=== PATIENT | male | born 1950 | race Caucasian/White ===

== ENCOUNTER 2019-05-06 18:34 | Inpatient (IN) ==
--- OUTSIDE RECORDS SUMMARY | 2019-05-06 21:20 | External Medical Summary | Continuity of Care Document ---
:1950 Author Name Charanjit Bal Address Unavailable Unavailable , Care Team Providers Name Role Phone Isidro DO Unavailable [email or web address], L Unavailable Unavailable Unavailable Unavailable Unavailable Assessments Assessment Narrative:Mr. Dulce Pablo is a 66-year-old male with resistant hypertension. He has preserved renal function with a serum creatinine documented at less than 1 mg/dL. He did not have evidence of proteinuria on screening. EKG does not show evidence of LVH. He is largely asymptomatic in terms of his elevated blood pressure readings. There is no personal history of cardiovascular disease. There is no family history of hypertension, cardiovascular disease or kidney disease. We establish blood pressuregoal of 130/80 mmHg. Patient's blood pressure appears to be controlled on his current regimen. He does endorse several side effects of clonidine but feels that overall he is tolerating the medication well. He developed urinary retention. This was presumably related to his prostate. He has started f inasteride and Flomax. He is scheduled for follow up with urology. Almonte catheter removed and urinary symptoms improved. Recent elevated PSA noted. The patient completed 3 weeks of antibiotic and plansto repeat the level. He did not tolerate carvedilol for the 24-48 hours he took the medication. Medical history is also notable for diabetes mellitus type 2 controlled with diet, hepatic steatosis, and asthma. He is maintained on aspirin 81 milligrams daily as well as a statin. Lipid profile is excellent. A1c is also appropriate at 6.7. He has been tolerating 40 milligrams daily of lisinopril. He tolerates atenolol 100 milligrams daily with some chronic bradycardia. He is tolerating HCTZ 25 mg daily. 24 hour urine collection for metanephrines was normal. Renin and aldosterone levels were also normal. TSH was normal. I will repeat a metabolic profile in 3 months and have the patient follow up at that time. He will continue to document home BP readings. He was educated regarding symptoms that warrant a more emergent evaluation.Assessed Problems:Hypertension Problems Hypertension (401.9) (I10) VERMA (nonalcoholic steatohepatitis) (571.8) (K75.81) Type 2 diabetes mellitus without complication (250.00) (E11. 9) Seasonal allergic rhinitis (477.9) (J30.2) Asthma (493.90) (J45.909) Mixed hyperlipidemia (272.2) (E78.2) Allergies and Adverse Reactions No Known Drug Allergies (Allergy) Medications hydroCHLOROthiazide 25 MG Oral Tablet; TAKE 1 TABLET DAILY. DO Cordell Felix Start: 30-Aug-2016 Quantity: 90 Refills: 3 Flomax 0.4 MG Oral Capsule; TAKE 1 CAPSULE Daily Refills: 0 ProAir HFA 108 (90 Base) MCG/ACT Inhalat ion Aerosol Solution; INHALE 2 PUFFS EVERY 4 HOURS NEEDED 8.5 GM Inhaler Quantity: 1 Refills: 5 cloNIDine HCl - 0.2 MG Oral Tablet; TAKE 1/2 TABLET TWICE DA CLAIRE. Refills: 0 Atorvastatin Calcium 20 MG Oral Tablet; TAKE 1 TABLET AT BED TIME. Quantity: 30 Refills: 5 Atenolol 100 MG Oral Tablet; TAKE 1 TABLET DAILY. Quantity: 30 Refills: 5 Aspirin 81 MG TABS; TAKE 1 TABLET DAILY. Refills: 0 Finasteride 5 MG Oral Tablet; TAKE 1 TABLET DAILY. Refills: 0 Advair Diskus AEPB; INHALE 1 PUFF DAILY. 14 Inhaler Pack Refills: 0 Lisinopril 40 MG Oral Tablet; TAKE 1 TABLET DAILY. DO Juvenal Felix Quantity: 90 Refills: 1 Procedures Procedures not documented Immunizations Immunizations not documented Social History - Smoking Status Never smoker Interventions InstructionsDo Not Take Anti-Inflammatory Medicines; Done: 17 Mar 2017Restrict your sodium (salt) intake to 2 grams per day.; Done: 17 Mar 2017 Follow-ups/ReferralsFollow-up visit in 3 months; Done: 17 Mar 2017 Plan of Treatment Planned Observations Planned Goals not documented Results No Known Results Results not documented Encounters Appointment; Cordell Felix DO 17-Mar-2017 10:45 Encounter Diagnosis: Problem not documented
[2019-05-06 21:55] LABS: Basophils # (auto) 0.02 K/uL (0-0.2); Basophils % (auto) 0.1 %; Hematocrit (blood only) 45.5 % (42-52); Hemoglobin 15.2 g/dL (14.0-18.0); Immature Granulocytes # (auto) 0.06 K/uL (0.00-0.02); Immature Granulocytes % (auto) 0.3 %; Lymphocytes # (auto) 0.75 K/uL (1.2-3.4); Lymphocytes % (auto) 4.2 %; Mean Corpuscular Hemoglobin 30.5 pg (25-34); Mean Corpuscular Volume 91.2 fL (80-100); Mean Platelet Volume 9.4 fL (7.4-10.4); Monocytes # (auto) 1.02 K/uL (0.11-0.59); Monocytes % (auto) 5.7 %; Neutrophils # (auto) 15.99 K/uL (1.4-6.5); Neutrophils % (auto) 89.7 %; Platelet Count 335 K/uL (130-400); RDW Coefficient of Variation 13.3 % (11.5-14.5); RDW Standard Deviation 44.2 fL (36.4-46.3); Red Blood Count 4.99 M/uL (4.7-6.1); White Blood Count 17.84 K/uL (4.8-10.8)
[2019-05-06 22:06] LABS: Partial Thromboplastin Time 25.8 Seconds (21.0-31.0); Prothrombin Time 10.6 Seconds (9.0-12.0)
[2019-05-06 22:14] LABS: Alanine Aminotransferase 86 U/L (12-78); Albumin Level 3.8 gm/dl (3.4-5.0); Aspartate Aminotransferase 129 U/L (15-37); BUN Creatinine Ratio 38.9 (10-20); Blood Urea Nitrogen 42 mg/dl (7-18); C Reactive Protein 6.18 mg/dl (0-0.29); Calcium 9.6 mg/dl (8.5-10.1); Carbon Dioxide 30 mmol/L (21-32); Chloride 101 mmol/L (98-107); Creatinine Clr Calc Pharmacy 70.7 ml/min; Est GFR (African American) 79.6; Est GFR (Non-African American) 68.7; Glucose 270 mg/dl (70-99); Potassium 3.7 mmol/L (3.5-5.1); Sodium 136 mmol/L (136-145)
[2019-05-06 22:17] LABS: Albumin Globulin Ratio 0.9 (0.9-2); Alkaline Phosphatase 88 U/L (45-117); Bilirubin,Total 0.5 mg/dl (0.2-1); Globulin 4.1 gm/dl (2.5-4.0); Total Protein 7.9 gm/dl (6.4-8.2)
--- NOTE | 2019-05-06 22:18 | History & Physical Report ---
Date of Service May 06, 2019 Assessment & Plan (1) Acute respiratory failure with hypoxia: Patrice Pablo is a 69-year-old male with a past medical history of asthma, hypertension, and type 2 diabetes mellitus who presented to [facility] with several days of dyspnea, fever, chills, and cough and who was found to have multiple infiltrates tree-in-bud at the bases on CT. He was not improving on Rocephin/azithromycin treatment and it was felt that he would benefit from a pulmonology consult so he was transferred to [facility] for further care. Acute hypoxic respiratory failure 2/2 CAP with a history of asthma Patient with a prior history of asthma. He does not know if he has had PFTs. He uses his Advair intermittently, but uses albuterol up to 10 times per day even prior to his current illness. CT chest at [facility] showed tree-in-bud opacities and multifocal pneumonia in the bases bilaterally. He was treated with empiric azithromycin expanded to Rocephin/azithromycin shortly before transfer Reports of fever prior to transfer. His white cell count is mildly elevated in the setting of steroids as below Methylprednisolone 40 mg daily at [facility], continue Pro-Javi negative, CRP elevated. MRSA pending Given negative pro-Javi, afebrile status on admission, and CT not suggestive of consolidative pneumonia with no risk factors for Pseudomonas defer upgrade to cefepime, as a throat this time, continue Rocephin/azithromycin and follow clinically. ?Improving CAP vs viral CAP Blood cultures drawn on admission, pending Legionella antigen pending - Pt reportedly with elevated pBNP SALES AND MARKETING DIRECTOR, repeat on admit wnl. - Flutter valve QID Asthma DuoNebs 4 times daily Steroid treatment as above - Pt will require education and optomization of his SALES AND MARKETING DIRECTOR inhalers. requiring albuterol 10x per day with nightly symptoms indicates mod-sev persistent asthma. Pulmonary consult as above Atrial flutter New atrial flutter with a rate of 113 prior to admission in setting of acute illness, patient had also been taking his own albuterol inhaler multiple times between DuoNeb treatments at [facility] Continue atenolol 100 mg p.o. at bedtime AST/ALT elevated. Trop negative. Normal sinus rhythm in the 80s, regular on admission TTE pending Defer full dose anticoagulation at this time Hypovolemia He appears clinically dry on exam, mucous membranes are tacky Creatinine normal, BUN/creatinine ratio 38.9 Initial concern for CHF/fluid overload with elevated BNP at [facility], BNP normal, chest x-ray shows no pleural effusion or edema, troponin normal Encourage p.o. intake, IVFM half-normal with 20KCl at 100 cc/h Type 2 diabetes mellitus On metformin monotherapy, hold SALES AND MARKETING DIRECTOR meds Glucose checks AC/at bedtime BMP daily Sliding scale insulin Hypertension Continue SALES AND MARKETING DIRECTOR lisinopril 40 mg p.o. nightly Continue SALES AND MARKETING DIRECTOR atenolol 100 mg p.o. nightly Continue amlodipine 2.5 mg p.o. at bedtime Continue clonidine 0.2 mg p.o. twice daily Diet: Diabetic, heart healthy VT prophylaxis: Lovenox 40 mg at this time Disposition: Med telemetry (2) Asthma: (3) CAP (community acquired pneumonia): (4) T2DM (type 2 diabetes mellitus): History of Present Illness Chief Complaint: Shortness of Breath, [facility] Primary Care Provider: Kit Graham Quinn Pablo is a 69-year-old male with a past medical history of asthma, h ypertension, and type 2 diabetes who presents as a direct transfer from [facility] for community-acquired pneumonia with acute hypoxic respiratory failure in an asthmatic. He was transferred for further care and pulmonology consult after failure to improve over 2 days. His symptoms began approximately 5 days ago with a head cold. He developed increasing shortness of breath and a nonproductive cough. He denies fever, chills, night sweats, nausea, vomiting, diarrhea, abdominal pain. He has had intermittent wheezing. He endorses a history of asthma which seems to be worse since his cold. He takes Advair intermittently. He uses an albuterol inhaler daily, up to 10 times per day even preceding his admission. Unsure if he has had PFTs in the past. On admission to [facility] he was given nebulizer treatments, but was not aware he was not supposed to use his own inhaler and was using his own inhaler multiple times between nebulizer treatments. He had a run of atrial flutter with a rate to 113. He does not have any prior history of atrial fibrillation, atrial flutter, or cardiac disease. He was noted to have an elevated BNP and [facility]. Per daughter he had a fever at [facility]. Report had a CT chest at [facility] which showed multifocal non-consolidative pneumonia in the lung bases. No MRSA swab or pro-Javi obtained. Patient was on high flow nasal cannula, on arrival is maintaining O2 saturation of 90% on 6 L. Medical history: Reviewed, updated Surgical history: Noncontributory Medications: Reviewed, updated in EMR Allergies: No known drug allergies Social: Denies current or former tobacco use. Denies alcohol use. Denies recreational drug use. Lives at home independently with his . CODE STATUS: Full code Allergies Allergy/AdvReac Type Severity Reaction Status Date / Time No Known Allergies Allergy Unverified 05/06/19 22:29 Home Medications Home Medications Medication Instructions Recorded Confirmed Type albuterol sulfate [Ventolin HFA] INHALATION 05/06/19 History amlodipine 2.5 mg PO HS 05/06/19 05/06/19 History atenolol [Tenormin] 100 mg PO HS 05/06/19 05/06/19 History atorvastatin 20 mg PO HS 05/06/19 History clonidine HCl 0.2 mg PO BID 05/06/19 05/06/19 History finasteride [Proscar] 5 mg PO DAILY 05/06/19 05/06/19 History hydrochlorothiazide 25 mg PO DAILY 05/06/19 05/06/19 History lisinopril 40 mg PO HS 05/06/19 History metformin [Glucophage] 500 mg PO HS 05/06/19 05/06/19 History tamsulosin [Flomax] 0.4 mg PO DAILY 05/06/19 05/06/19 History Past Med/Surg History Medical History (Updated 05/06/19 @ 22:53 by Palomo Graff MD) Asthma T2DM (type 2 diabetes mellitus) Family History (Updated 05/06/19 @ 23:55 by Palomo Graff MD) Father Heart disease Myocardial infarction Mother Cancer, Onset Age: 80 pancreatic Sister Diabetes Social History Preferred Language: Libyan Communication Ability: Effective Associate Director Data & Analytics Required: No Beliefs That Will Affect Care: Quaker Current Living Situation: Spouse Other Information That Helps Us Care for You: No Feels Safe at Home: Yes Safety Concerns: Feels Safe At This Time Smoking Status: Never smoker Do You Dip or Chew Tobacco: No ; Second Hand Exposure: No ; Tobacco Cessation Education Requested by Patient: No Hx Alcohol Use: Yes Alcohol type: wine Hx Substance Use: No Review of Systems Review of Systems: All systems reviewed & are unremarkable except as noted in HPI & below Physical Exam Physical Exam: General: A&Ox3. NAD. Appears fatigued, ill but nontoxic. Skin warm. Mucous membranes tacky. HEENT: Atraumatic, normocephalic. Pulm: Lungs with diffuse expiratory wheezes, trace bibasilar crackles. Moderate air movement. Symmetrical chest rise. Trachea midline. Cardiac: RRR, -mrg. Radial pulses intact and symmetrical. No JVD. Abdominal: Nontender, nondistended, soft. BS present. CN II: Visual ba are full to confrontation. Pupils are equal and react to light and accomidation. Visual acuity grossly intact. CN III, IV, : At primary gaze, there is no eye deviation. EoM intact without nystagmus. No visual field cuts. CN VII: No facial asymmetry CN VII: Hearing is grossly intact. CN IX, X: Phonation is normal without dysarthria. CN XI: Head turning intact CN XII: Tongue protrudes midline. Sensory: Light touch, pinprick intact in upper and low extremities without deficit or asymmetry. Strength: RUE: Shoulder flexion/extension/internal rotation/external rotation, elbow flexion/extension, finger flexion/extension, medical certification specialist strength, interosseous 5/5 LUE: Shoulder flexion/extension/internal rotation/external rotation, elbow flexion/extension, finger flexion/extension, medical certification specialist strength, interosseous 5/5 RLE: Hip flexion, knee flexion/extension, ankle plantar flexion/dorsiflexion 5/5 LLE: Hip flexion, knee flexion/extension, ankle plantar flexion/dorsiflexion 5/5 Results & Data Vital Signs (Past 12 Hours) Vital Signs Temp Pulse Resp BP BP Pulse Ox 05/06/19 21:00 36.7 C 84 26 H 197/84 H 200/80 H 90 Supervising Physician Co-Signing Physician Notes Attending addendum: I have physically seen this patient, have supervised the medical residents activities, and agree with the H&P unless as otherwise noted. Assessment and Plan: Acute respiratory failure with hypoxia/community-acquired pneumonia/asthma- CT of chest at [facility] showed multifocal pneumonia. Patient reportedly did develop a temperature prior to transfer, in spite of change of antibiotics from azithromycin to ceftriaxone and azithromycin IV, along with Solu-Medrol IV. Consult pulmonology per transfer facility request. Placed on Duonebs every 4 hours while awake and every 2 hours when necessary. Will not change antibiotics at this time, as chest x-ray looks reasonably good, and patient will be seen by pulmonology in the a.m. Hypertension/resolved episode atrial flutter- Presently in sinus rhythm upon admission here. Flutter related to medicamentosa, as patient was self-medicating with his own albuterol inhaler in addition to prescribed nebulizer treatments at referring hospital. Presently on lisinopril 40 mg daily, atenolol 100 mg nightly, amlodipine 2.5 mg nightly and clonidine 0.2 mg p.o. twice daily. For now would continue his medications, however, if he continues to have issues with breathing, then may need to switch away from some of beta-dannielle Follow-up on results of CBC with differential, chemistry profile, troponin and magnesium level. Remainder of orders and notations as noted. Resident Activity Tracking Resident Involvement: Resident Care Provided Care Provided: Adult Hospital Medicine
[2019-05-06] MEDS ORDERED: AMLODIPINE BESYLATE 5 MG TAB PO ONE (22:27)
[2019-05-06] MEDS ORDERED: ATENOLOL 50 MG TABLET PO ONE (22:27)
[2019-05-06] MEDS ORDERED: lisinopriL 40 MG TAB PO ONE (22:28)
[2019-05-06] MEDS ORDERED: ONDANSETRON INJ 2 MG/ML 2 ML VIAL IV PRN (22:28)
[2019-05-06] MEDS ORDERED: ACETAMINOPHEN 325 MG TAB PO PRN (22:28)
[2019-05-06] MEDS ORDERED: POLYETHYLENE (MIRALAX) 17 GM PACK PO PRN (22:28)
[2019-05-06] MEDS ORDERED: GLUCAGON FOR INJ 1 MG VIAL SQ PRN (22:29)
[2019-05-06] MEDS ORDERED: GLUCOSE 10 TABS/TUBE PO PRN (22:29)
[2019-05-06] MEDS ORDERED: DEXTROSE 50% 50 ML SYRINGE IV PRN (22:29)
[2019-05-06] MEDS ORDERED: CARBOHYDRATES FOR HYPOGLYCEMIA PO PRN (22:29)
[2019-05-06] MEDS ORDERED: GLUCOSE 40% GEL 15 GM TUBE PO PRN (22:29)
[2019-05-06] MEDS ORDERED: CEFEPIME 2,000 MG in SYRINGE 7.5 ML IV SCH (22:30)
[2019-05-06 22:43] LABS: Mean Corpuscular Hgb Conc 33.4 g/dL (32-36)
[2019-05-06] MEDS ORDERED: guaiFENesin SUGAR FREE 200 MG/10 ML UDC PO PRN (22:47)
[2019-05-06] MEDS ORDERED: PHARMACY GLYCEMIC MGMT CONSULT PRN (23:00)
[2019-05-06 23:04] LABS: Influenza A virus by PCR Neg for Influ A (Neg); Influenza B virus by PCR Neg for Influ B (Neg)
[2019-05-06] MEDS: cloNIDine HCL 0.1 MG TAB PO SCH (23:10)
[2019-05-06] MEDS: ATENOLOL 50 MG TABLET PO SCH (23:10)
[2019-05-06 23:20] LABS: NT Pro B Type Natriuretic Pept 569 pg/ml (0-900); Troponin I < 0.015 ng/ml (0-0.045)
[2019-05-06] MEDS: INSULIN ASPART 100 UNITS/ML 3 ML PEN SC SCH (23:36)
[2019-05-07] MEDS: SODIUM CHLOR 0.45% + 20MEQ KCL 20 MEQ/1,000 ML BAG IV SCH ×2 (00:12→10:38)
[2019-05-07] MEDS ORDERED: INSULIN ASPART 100 UNITS/ML 3 ML PEN SC SCH (02:00)
[2019-05-07] MEDS: ALBUT/IPRATROP 3MG/0.5MG NEB 3 ML VIAL NEB SCH ×5 (02:26→19:16)
--- NOTE | 2019-05-07 03:44 | Billing Data ---
Date of Service May 07, 2019 Coding Level of Care Code 09429 Initial Inpt Care Lvl 3
[2019-05-07] MEDS ORDERED: COUGH DROP (SUGAR FREE) LOZ 24 LOZ/1 BOX BUCCAL ONE (03:50)
[2019-05-07] MEDS: ENOXAPARIN INJ 40 MG/0.4 ML SYR SQ SCH (06:32)
--- NOTE | 2019-05-07 06:34 | XRay Report ---
XR chest 1V portable CLINICAL HISTORY: shortness of breath COMPARISON STUDY: No previous studies for comparison. FINDINGS: The heart is borderline enlarged. There is no failure. There is no focal pulmonary consolid ation. There are no pleural effusions.[ IMPRESSION: No active disease in the chest. ACT 112: Negative or not required by law. Electronically signed by: Ulisses Guillen M.D. 05/07/2019 6:33 AM
[2019-05-07 07:39] LABS: Basophils # (auto) 0.01 K/uL (0-0.2); Basophils % (auto) 0.1 %; Hematocrit (blood only) 45.1 % (42-52); Hemoglobin 14.8 g/dL (14.0-18.0); Immature Granulocytes # (auto) 0.05 K/uL (0.00-0.02); Immature Granulocytes % (auto) 0.3 %; Lymphocytes # (auto) 1.21 K/uL (1.2-3.4); Lymphocytes % (auto) 7.3 %; Mean Corpuscular Hemoglobin 30.4 pg (25-34); Mean Corpuscular Hgb Conc 32.8 g/dL (32-36); Mean Corpuscular Volume 92.6 fL (80-100); Mean Platelet Volume 9.4 fL (7.4-10.4); Monocytes # (auto) 1.78 K/uL (0.11-0.59); Monocytes % (auto) 10.7 %; Neutrophils # (auto) 13.63 K/uL (1.4-6.5); Neutrophils % (auto) 81.6 %; Platelet Count 310 K/uL (130-400); RDW Coefficient of Variation 13.4 % (11.5-14.5); RDW Standard Deviation 45.1 fL (36.4-46.3); Red Blood Count 4.87 M/uL (4.7-6.1); White Blood Count 16.68 K/uL (4.8-10.8)
[2019-05-07 08:08] LABS: Calcium 8.9 mg/dl (8.5-10.1); Creatinine Clr Calc Pharmacy 89.6 ml/min; Est GFR (African American) 101.6; Est GFR (Non-African American) 87.7; Potassium 4.1 mmol/L (3.5-5.1)
[2019-05-07] MEDS: methylPREDNISolone 40 MG in SYRINGE 0 ML IV SCH (08:34)
[2019-05-07] MEDS: FINASTERIDE 5 MG TAB PO SCH (08:35)
[2019-05-07] MEDS: hydroCHLOROthiazide 25 MG TAB PO SCH (08:36)
[2019-05-07] MEDS: TAMSULOSIN HCL 0.4 MG CAP PO SCH (08:36)
[2019-05-07] MEDS: cloNIDine HCL 0.1 MG TAB PO SCH ×2 (08:36→19:21)
[2019-05-07] MEDS: INSULIN ASPART 100 UNITS/ML 3 ML PEN SC SCH ×4 (08:37→20:28)
[2019-05-07] MEDS: cefTRIAXone SODIUM 2,000 MG in DEXTROSE 5% 50 ML IV SCH (08:55)
--- NOTE | 2019-05-07 09:40 | Electrocardiogram Report ---
Test Reason : Blood Pressure : / mmHG Vent. Rate : 087 BPM Atrial Rate : 087 BPM P-R Int : 150 ms QRS Dur : 092 ms QT Int : 406 ms P-R-T Axes : 063 052 045 degrees QTc Int : 488 ms Normal sinus rhythm Nonspecific ST abnormality Prolonged QT Abnormal ECG No previous ECGs available Confirmed by Quinn Lowry ([id number]) on 05/07/2019 9:40:22 AM Referred By: Fransico Madsen Confirmed By:Quinn Lowry
[2019-05-07] MEDS ORDERED: DOCUSATE SODIUM 100 MG CAP PO ONE (09:45)
[2019-05-07] MEDS ORDERED: AZITHROMYCIN 250 MG in DEXTROSE 5% 250 ML IV SCH (10:00)
--- NOTE | 2019-05-07 12:21 | Electrocardiogram Report ---
Test Reason : Blood Pressure : / mmHG Vent. Rate : 068 BPM Atrial Rate : 068 BPM P-R Int : 148 ms QRS Dur : 094 ms QT Int : 430 ms P-R-T Axes : 060 051 062 degrees QTc Int : 457 ms Normal sinus rhythm Normal ECG When compared with ECG of 06-MAY-2019 22:54, No significant change was found Confirmed by Quinn Lowry ([id number]) on 05/07/2019 12:20:52 PM Referred By: Fransico Madsen Confirmed By:Quinn Lowry
--- NOTE | 2019-05-07 12:46 | Pulmonary Consultation ---
Date of Consultation May 07, 2019 Assessment & Plan (1) Acute respiratory failure with hypoxia: -- Acute Hypoxic respiratory failure Likely sec to multilobar pneumonia ESR: 48, CRP: 6.18, influenza nasal swab negative, follow-up blood culture and sputum culture. Mycoplasma IgM and Legionella urine antigen Continue with antibiotics azithromycin and Rocephin Maintain SPO2 between 88 to 92% Chest x-ray done 05/06/2019: Shows haziness in the right lower lobe bilateral costophrenic angles are clean, bilateral cardiophrenic angles are clean. CT chest of the patient has not yet been uploaded to the system. Radiology department contacted to upload the CD as soon as possible. -- Questionable history of asthma On asking patient multiple times if he has history of asthma or family history of asthma patient denies He is on albuterol at home but not taking any other inhalers other than that. Patient is actively wheezing and on steroids right now. We will try to de- escalate steroids as soon as possible Continue with bronchodilators -- Questionable vegetation on TTE Cardiology on board Follow blood culture Further recommendations will be based after looking at the CAT scan of the chest. Please note the above document was generated using voice recognition software. It may contain grammatical, syntax or spelling errors. (2) CAP (community acquired pneumonia): History of Present Illness Attending Physician: Irais Guo MD History of Present Illness 69-year-old male with past medical history of hypertension, type 2 diabetes comes to the hospital as a transfer from [facility] because of hypoxic respiratory failure secondary to pneumonia. Patient had a CT chest done at [facility] whose report states pneumonia. Images have not been uploaded to our system yet I personally not look at this CAT scan of the chest. Patient has been having cough since last which is mostly dry. The cough is been associated with shortness of breath progressively getting worse since . Patient denies any chest pain, no recent upper respiratory infections. No diarrhea, no dysuria, no dizziness, no blurry vision. No headache. Patient denies any subjective fever or chills. Although as per the daughter patient had fever at [facility]. No night sweats. No weight loss. No recent travel history. Patient is unknown if he had any contact with anybody from [place]. Social history: Patient is a non-smoker, no illicit drug use, no alcohol use. Worked as an accounts receivable accountant. Retired now. Patient personally denies any history of asthma. There is no family history of asthma. No personal or family history of any lung cancer. Patient denies any allergies to any medication or even seasonal allergies. Allergies Allergy/AdvReac Type Severity Reaction Status Date / Time No Known Allergies Allergy Unverified 05/06/19 22:29 Home Medications Home Medications Medication Instructions Recorded Confirmed Type albuterol sulfate [Ventolin HFA] INHALATION 05/06/19 History amlodipine 2.5 mg PO HS 05/06/19 05/06/19 History atenolol [Tenormin] 100 mg PO HS 05/06/19 05/06/19 History atorvastatin 20 mg PO HS 05/06/19 History clonidine HCl 0.2 mg PO BID 05/06/19 05/06/19 History finasteride [Proscar] 5 mg PO DAILY 05/06/19 05/06/19 History hydrochlorothiazide 25 mg PO DAILY 05/06/19 05/06/19 History lisinopril 40 mg PO HS 05/06/19 History metformin [Glucophage] 500 mg PO HS 05/06/19 05/06/19 History tamsulosin [Flomax] 0.4 mg PO DAILY 05/06/19 05/06/19 History Patient History Medical History (Updated 05/06/19 @ 22:53 by Palomo Graff MD) Asthma T2DM (type 2 diabetes mellitus) Family History (Updated 05/06/19 @ 23:55 by Palomo Graff MD) Father Heart disease Myocardial infarction Mother Cancer, Onset Age: 80 pancreatic Sister Diabetes Social History Preferred Language: Frisian Communication Ability: Effective Underwater Roboticist Required: No Beliefs That Will Affect Care: Restorationism Current Living Situation: Spouse Other Information That Helps Us Care for You: No Feels Safe at Home: Yes Safety Concerns: Feels Safe At This Time Smoking Status: Never smoker Do You Dip or Chew Tobacco: No ; Second Hand Exposure: No ; Tobacco Cessation Education Requested by Patient: No Hx Alcohol Use: Yes Alcohol type: wine Hx Substance Use: No Review of Systems Review of Systems: All systems reviewed & are unremarkable except as noted in HPI & below Physical Exam Physical Exam: Constitutional: No acute distress HEENT: EOMI, PERRLA, moist mucous membranes Respiratory system: Good air entry bilaterally, positive expiratory wheeze, positive rhonchi, no crackles CVS: S1-S2 positive, no murmurs or gallops Abdomen: Soft, nontender, nondistended, positive bowel sounds x4 Extremities: +2 pulses bilaterally radialis/ dorsalis pedis, no cyanosis, no edema, no clubbing Neuro: Awake alert oriented x3 Psych: Normal mood and affect G/U: No Almonte At the time of examination patient was saturating 90% on 4 L nasal cannula at rest. Skin: no rashes, warm and dry Lymphatic: no cervical or axillary lymphadenopathy Results & Data ([facility]) Vital Signs (Past 12 Hours) Vital Signs Temp Pulse Resp BP BP Pulse Ox 05/07/19 11:31 36.7 C 75 18 128/64 91 05/07/19 11:06 68 18 92 05/07/19 08:35 148/100 H 05/07/19 07:13 103 H 18 92 05/07/19 07:10 37.0 C 97 H 21 171/105 H 92 05/07/19 03:59 36.6 C 71 19 156/72 H 95 05/07/19 02:29 91 H 18 94 05/07/19 07:05 05/07/19 07:05 PG Care Time/CCT Total # of Minutes Spent Total Time Spent with Patient: Total time spent is greater than 50% in coordination of care (as documented) at patient's floor/unit and/or counseling patient: [place] [address] Initial Inpt Care Lvl 3 Patient Type New Diagnoses Acute respiratory failure with hypoxia J96.01 CAP (community acquired pneumonia) J18.9
--- NOTE | 2019-05-07 12:52 | Hospitalist Progress Note ---
Date of Service May 07, 2019 Assessment & Plan (1) Acute respiratory failure with hypoxia: Patrice Pablo is a 69-year-old male with a past medical history of asthma, hypertension, and type 2 diabetes mellitus who presented to [facility] with several days of dyspnea, fever, chills, and cough. Acute hypoxic respiratory failure secondary to asthma exacerbation due to pneumonia: - likely 2/2 CAP with a history of asthma; patient with a prior history of asthma. He uses his Advair intermittently, but uses albuterol up to 10 times per day during current illness; was treated with empiric azithromycin expanded to Rocephin/azithromycin shortly before transfer - continue Rocephin/azithromycin - on transfer from [facility] patient on Methylprednisolone 40 mg daily - Pro-Javi 0.13, ESR 48, CRP 6.8; Nasal MRSA negative - Blood cultures drawn on admission, pending - Legionella antigen pending - Flutter valve QID - Pulmonology consulted: appreciate recs Asthma: - Pt should have Asthma Action Plan further outlined for asthma control in outpatient setting; during this illness patient was using albuterol rescue inhaler up to 10x per day with nightly symptoms - continue DuoNebs 4 times daily - continue methylprednisolone 40mg daily - Pulmonary consult: appreciate recs A flutter vs A fib: - concern for atrial flutter on telemetry with a rate of 113 at [facility] - EKG did not demonstrate any changes to electrical activity, - continue atenolol 100 mg p.o. at bedtime - TTE demonstrated 0.5 cm focal echodensity attached to tip of mitral valve, with 1cm long filamentous structure with independent motion; ? if bacterial vegetation, Blood cx pending - Cardiology consulted: appreciate recs Hypovolemia: - He appears clinically dry on exam, mucous membranes are tacky - Creatinine normal, BUN/creatinine ratio 38.9 Type 2 diabetes mellitus: - On metformin monotherapy, hold home med regimen - expect some continued fluctuation given on steroids - Glucose checks AC/at bedtime Hypertension: - Continue home lisinopril 40 mg p.o. - Continue home atenolol 100 mg p.o. - Continue home amlodipine 2.5 mg p.o. - Continue home clonidine 0.2 mg p.o. twice daily Diet: Diabetic, heart healthy DVT prophylaxis: Lovenox 40 mg at this time Code status: Full Admission and Anticipated Discharge Date Admission Date: May 06, 2019 Supervising Physician Co-Signing Physician Notes Resident Physician Supervision Note: I independently interviewed and examined the patient and verified the [place] history and physical, reviewed labs and image studies, discussed the case with the resident Dr. Green and agree with the findings and care plan. Subjective Patient does not continue to feel overtly winded while sitting in bed. This is new after having been transferred from previous facility. Does still have some shortness of breath when getting up and walking around within the room. Still requiring oxygen support in the form of 3L nasal cannula, however patient at this point time feels significantly better than he had prior to transfer. Review of Systems Constitutional: no fever, no chills and no sweats Eyes: no blind spots, no diplopia and no spots in vision Ear, Nose, Mouth, Throat: no tinnitus, no dizziness, no nasal congestion and no nasal discharge Respiratory: no cough and no wheezing Cardiovascular: no chest pain, no palpitations, no edema and no claudication Gastrointestinal: no abdominal pain, no nausea and no vomiting Physical Exam Constitutional: WD/WN, vitals as above Eyes: PERRL, conjunctivae normal, anicteric sclerae ENMT: external ear and nose normal, oropharynx normal Respiratory: normal respiratory effort and able to speak in complete sentences; not tachypneic Auscultation: + wheezes (whole ba, end expiratory); no diminished lung sounds, no crackles and no rales Cardiovascular: Rate/Rhythm: regular rate and regular rhythm Heart Sounds: no gallop, no murmur and no cardiac rub Vessels: normal peripheral pulses Gastrointestinal (Abdomen): normal bowel sounds, soft, nontender, no hepatosplenomegaly Lymphatic: no cervical or axillary lymphadenopathy Results & Data ([facility]) Vital Signs (Past 12 Hours) Vital Signs Temp Pulse Resp BP BP Pulse Ox 05/07/19 11:31 36.7 C 75 18 128/64 91 05/07/19 11:06 68 18 92 05/07/19 08:35 148/100 H 05/07/19 07:13 103 H 18 92 05/07/19 07:10 37.0 C 97 H 21 171/105 H 92 05/07/19 03:59 36.6 C 71 19 156/72 H 95 05/07/19 02:29 91 H 18 94 Laboratory Results 05/07/19 05/07/19 05/07/19 Range/Units 11:33 07:34 07:05 WBC (4.8-10.8) K/uL RBC (4.7-6.1) M/uL Hgb (14.0-18.0) g/dL Hct (42-52) % MCV (80-100) fL MCH (25-34) pg MCHC (32-36) g/dL RDW Std Deviation (36.4-46.3) fL RDW Coeff of Rosalino (11.5-14.5) % Plt Count (130-400) K/uL MPV (7.4-10.4) fL Immature Gran % (Auto) % Neut % (Auto) % Lymph % (Auto) % [place] % (Auto) % Eos % (Auto) % Baso % (Auto) % Immature Gran # (Auto) (0.00-0.02) K/uL Neut # (Auto) (1.4-6.5) K/uL Lymph # (Auto) (1.2-3.4) K/uL [place] # (Auto) (0.11-0.59) K/uL Eos # (Auto) (0-0.5) K/uL Baso # (Auto) (0-0.2) K/uL ESR (0-14) mm/hr PT (9.0-12.0) Seconds INR (0.9-1.1) APTT (21.0-31.0) Seconds PTT Ratio Sodium 138 (136-145) mmol/L Potassium 4.1 (3.5-5.1) mmol/L Chloride 104 (98-107) mmol/L Carbon Dioxide 30 (21-32) mmol/L Anion Gap 4.0 (3-11) BUN 38 H (7-18) mg/dl Creatinine 0.85 (0.6-1.4) mg/dl Est Cr Clr Drug Dosing 89.6 ml/min Est GFR ( Amer) 101.6 Est GFR (Non-Af Amer) 87.7 BUN/Creatinine Ratio 45.0 H (10-20) Glucose 193 H (70-99) mg/dl POC Glucose 158 H 179 H (70-99) mg/dl Calcium 8.9 (8.5-10.1) mg/dl Total Bilirubin (0.2-1) mg/dl AST (15-37) U/L ALT (12-78) U/L Alkaline Phosphatase (45-117) U/L Troponin I (0-0.045) ng/ml C-Reactive Protein (0-0.29) mg/dl NT-Pro-B Natriuret Pep (0-900) pg/ml Total Protein (6.4-8.2) gm/dl Albumin (3.4-5.0) gm/dl Globulin (2.5-4.0) gm/dl Albumin/Globulin Ratio (0.9-2) Procalcitonin (0-0.5) ng/ml Nasal Screen MRSA (PCR) (Negative) Influenza Type A (PCR) (Neg) Influenza Type B (PCR) (Neg) Urine Legionella Ag 05/07/19 05/07/19 05/07/19 Range/Units 07:05 02:10 00:30 WBC 16.68 H (4.8-10.8) K/uL RBC 4.87 (4.7-6.1) M/uL Hgb 14.8 (14.0-18.0) g/dL Hct 45.1 (42-52) % MCV 92.6 (80-100) fL MCH 30.4 (25-34) pg MCHC 32.8 (32-36) g/dL RDW Std Deviation 45.1 (36.4-46.3) fL RDW Coeff of Rosalino 13.4 (11.5-14.5) % Plt Count 310 (130-400) K/uL MPV 9.4 (7.4-10.4) fL Immature Gran % (Auto) 0.3 % Neut % (Auto) 81.6 % Lymph % (Auto) 7.3 % [place] % (Auto) 10.7 % Eos % (Auto) 0.0 % Baso % (Auto) 0.1 % Immature Gran # (Auto) 0.05 H (0.00-0.02) K/uL Neut # (Auto) 13.63 H (1.4-6.5) K/uL Lymph # (Auto) 1.21 (1.2-3.4) K/uL [place] # (Auto) 1.78 H (0.11-0.59) K/uL Eos # (Auto) 0.00 (0-0.5) K/uL Baso # (Auto) 0.01 (0-0.2) K/uL ESR (0-14) mm/hr PT (9.0-12.0) Seconds INR (0.9-1.1) APTT (21.0-31.0) Seconds PTT Ratio Sodium (136-145) mmol/L Potassium (3.5-5.1) mmol/L Chloride (98-107) mmol/L Carbon Dioxide (21-32) mmol/L Anion Gap (3-11) BUN (7-18) mg/dl Creatinine (0.6-1.4) mg/dl Est Cr Clr Drug Dosing ml/min Est GFR ( Amer) Est GFR (Non-Af Amer) BUN/Creatinine Ratio (10-20) Glucose (70-99) mg/dl POC Glucose 183 H (70-99) mg/dl Calcium (8.5-10.1) mg/dl Total Bilirubin (0.2-1) mg/dl AST (15-37) U/L ALT (12-78) U/L Alkaline Phosphatase (45-117) U/L Troponin I (0-0.045) ng/ml C-Reactive Protein (0-0.29) mg/dl NT-Pro-B Natriuret Pep (0-900) pg/ml Total Protein (6.4-8.2) gm/dl Albumin (3.4-5.0) gm/dl Globulin (2.5-4.0) gm/dl Albumin/Globulin Ratio (0.9-2) Procalcitonin (0-0.5) ng/ml Nasal Screen MRSA (PCR) (Negative) Influenza Type A (PCR) (Neg) Influenza Type B (PCR) (Neg) Urine Legionella Ag Pending 05/06/19 05/06/19 05/06/19 Range/Units 22:22 22:22 21:32 WBC (4.8-10.8) K/uL RBC (4.7-6.1) M/uL Hgb (14.0-18.0) g/dL Hct (42-52) % MCV (80-100) fL MCH (25-34) pg MCHC (32-36) g/dL RDW Std Deviation (36.4-46.3) fL RDW Coeff of Rosalino (11.5-14.5) % Plt Count (130-400) K/uL MPV (7.4-10.4) fL Immature Gran % (Auto) % Neut % (Auto) % Lymph % (Auto) % [place] % (Auto) % Eos % (Auto) % Baso % (Auto) % Immature Gran # (Auto) (0.00-0.02) K/uL Neut # (Auto) (1.4-6.5) K/uL Lymph # (Auto) (1.2-3.4) K/uL [place] # (Auto) (0.11-0.59) K/uL Eos # (Auto) (0-0.5) K/uL Baso # (Auto) (0-0.2) K/uL ESR (0-14) mm/hr PT (9.0-12.0) Seconds INR (0.9-1.1) APTT (21.0-31.0) Seconds PTT Ratio Sodium (136-145) mmol/L Potassium (3.5-5.1) mmol/L Chloride (98-107) mmol/L Carbon Dioxide (21-32) mmol/L Anion Gap (3-11) BUN (7-18) mg/dl Creatinine (0.6-1.4) mg/dl Est Cr Clr Drug Dosing ml/min Est GFR ( Amer) Est GFR (Non-Af Amer) BUN/Creatinine Ratio (10-20) Glucose (70-99) mg/dl POC Glucose (70-99) mg/dl Calcium (8.5-10.1) mg/dl Total Bilirubin (0.2-1) mg/dl AST (15-37) U/L ALT (12-78) U/L Alkaline Phosphatase (45-117) U/L Troponin I (0-0.045) ng/ml C-Reactive Protein (0-0.29) mg/dl NT-Pro-B Natriuret Pep (0-900) pg/ml Total Protein (6.4-8.2) gm/dl Albumin (3.4-5.0) gm/dl Globulin (2.5-4.0) gm/dl Albumin/Globulin Ratio (0.9-2) Procalcitonin 0.13 (0-0.5) ng/ml Nasal Screen MRSA (PCR) Negative (Negative) Influenza Type A (PCR) Neg for Influ A (Neg) Influenza Type B (PCR) Neg for Influ B (Neg) Urine Legionella Ag 05/06/19 05/06/19 05/06/19 Range/Units 21:32 21:32 21:32 WBC (4.8-10.8) K/uL RBC (4.7-6.1) M/uL Hgb (14.0-18.0) g/dL Hct (42-52) % MCV (80-100) fL MCH (25-34) pg MCHC (32-36) g/dL RDW Std Deviation (36.4-46.3) fL RDW Coeff of Rosalino (11.5-14.5) % Plt Count (130-400) K/uL MPV (7.4-10.4) fL Immature Gran % (Auto) % Neut % (Auto) % Lymph % (Auto) % [place] % (Auto) % Eos % (Auto) % Baso % (Auto) % Immature Gran # (Auto) (0.00-0.02) K/uL Neut # (Auto) (1.4-6.5) K/uL Lymph # (Auto) (1.2-3.4) K/uL [place] # (Auto) (0.11-0.59) K/uL Eos # (Auto) (0-0.5) K/uL Baso # (Auto) (0-0.2) K/uL ESR 48 H (0-14) mm/hr PT 10.6 (9.0-12.0) Seconds INR 1.0 (0.9-1.1) APTT 25.8 (21.0-31.0) Seconds PTT Ratio 1.0 Sodium 136 (136-145) mmol/L Potassium 3.7 (3.5-5.1) mmol/L Chloride 101 (98-107) mmol/L Carbon Dioxide 30 (21-32) mmol/L Anion Gap 5.0 (3-11) BUN 42 H (7-18) mg/dl Creatinine 1.08 (0.6-1.4) mg/dl Est Cr Clr Drug Dosing 70.7 ml/min Est GFR ( Amer) 79.6 Est GFR (Non-Af Amer) 68.7 BUN/Creatinine Ratio 38.9 H (10-20) Glucose 270 H (70-99) mg/dl POC Glucose (70-99) mg/dl Calcium 9.6 (8.5-10.1) mg/dl Total Bilirubin 0.5 (0.2-1) mg/dl AST 129 H (15-37) U/L ALT 86 H (12-78) U/L Alkaline Phosphatase 88 (45-117) U/L Troponin I < 0.015 (0-0.045) ng/ml C-Reactive Protein 6.18 H (0-0.29) mg/dl NT-Pro-B Natriuret Pep 569 (0-900) pg/ml Total Protein 7.9 (6.4-8.2) gm/dl Albumin 3.8 (3.4-5.0) gm/dl Globulin 4.1 H (2.5-4.0) gm/dl Albumin/Globulin Ratio 0.9 (0.9-2) Procalcitonin (0-0.5) ng/ml Nasal Screen MRSA (PCR) (Negative) Influenza Type A (PCR) (Neg) Influenza Type B (PCR) (Neg) Urine Legionella Ag 05/06/19 05/06/19 Range/Units 21:32 21:20 WBC 17.84 H (4.8-10.8) K/uL RBC 4.99 (4.7-6.1) M/uL Hgb 15.2 (14.0-18.0) g/dL Hct 45.5 (42-52) % MCV 91.2 (80-100) fL MCH 30.5 (25-34) pg MCHC 33.4 (32-36) g/dL RDW Std Deviation 44.2 (36.4-46.3) fL RDW Coeff of Rosalino 13.3 (11.5-14.5) % Plt Count 335 (130-400) K/uL MPV 9.4 (7.4-10.4) fL Immature Gran % (Auto) 0.3 % Neut % (Auto) 89.7 % Lymph % (Auto) 4.2 % [place] % (Auto) 5.7 % Eos % (Auto) 0.0 % Baso % (Auto) 0.1 % Immature Gran # (Auto) 0.06 H (0.00-0.02) K/uL Neut # (Auto) 15.99 H (1.4-6.5) K/uL Lymph # (Auto) 0.75 L (1.2-3.4) K/uL [place] # (Auto) 1.02 H (0.11-0.59) K/uL Eos # (Auto) 0.00 (0-0.5) K/uL Baso # (Auto) 0.02 (0-0.2) K/uL ESR (0-14) mm/hr PT (9.0-12.0) Seconds INR (0.9-1.1) APTT (21.0-31.0) Seconds PTT Ratio Sodium (136-145) mmol/L Potassium (3.5-5.1) mmol/L Chloride (98-107) mmol/L Carbon Dioxide (21-32) mmol/L Anion Gap (3-11) BUN (7-18) mg/dl Creatinine (0.6-1.4) mg/dl Est Cr Clr Drug Dosing ml/min Est GFR ( Amer) Est GFR (Non-Af Amer) BUN/Creatinine Ratio (10-20) Glucose (70-99) mg/dl POC Glucose 237 H (70-99) mg/dl Calcium (8.5-10.1) mg/dl Total Bilirubin (0.2-1) mg/dl AST (15-37) U/L ALT (12-78) U/L Alkaline Phosphatase (45-117) U/L Troponin I (0-0.045) ng/ml C-Reactive Protein (0-0.29) mg/dl NT-Pro-B Natriuret Pep (0-900) pg/ml Total Protein (6.4-8.2) gm/dl Albumin (3.4-5.0) gm/dl Globulin (2.5-4.0) gm/dl Albumin/Globulin Ratio (0.9-2) Procalcitonin (0-0.5) ng/ml Nasal Screen MRSA (PCR) (Negative) Influenza Type A (PCR) (Neg) Influenza Type B (PCR) (Neg) Urine Legionella Ag Medications Administered Current Inpatient Medications Acetaminophen (Tylenol) 650 mg PO Q4H PRN PRN Reason: pain/fever Stop: 06/05/19 22:27 Albuterol (Duoneb) 3 ml NEB QIDR COUNT INCLUDES THE [facility] Stop: 06/06/19 06:59 Last Admin: 05/07/19 15:00 Dose: 3 ml Documented by: Amlodipine Besylate (Norvasc) 2.5 mg PO HS COUNT INCLUDES THE [facility] Stop: 06/06/19 20:59 Atenolol (Tenormin) 100 mg PO HS COUNT INCLUDES THE [facility] Stop: 06/05/19 22:27 Last Admin: 05/06/19 23:10 Dose: 100 mg Documented by: Clonidine HCl (Catapres) 0.2 mg PO BID COUNT INCLUDES THE [facility] Stop: 06/05/19 22:59 Last Admin: 05/07/19 08:36 Dose: 0.2 mg Documented by: Dextrose (Dextrose 50%) 25 - 50 ml IV UD PRN; Protocol PRN Reason: Hypoglycemia Protocol Stop: 06/05/19 22:28 Enoxaparin Sodium (Lovenox) 40 mg SQ QAM MANOLO Stop: 06/06/19 08:59 Last Admin: 05/07/19 06:32 Dose: 40 mg Documented by: Finasteride (Proscar) 5 mg PO DAILY COUNT INCLUDES THE [facility] Stop: 06/06/19 08:59 Last Admin: 05/07/19 08:35 Dose: 5 mg Documented by: Glucagon (Glucagen) 1 mg SQ UD PRN; Protocol PRN Reason: Hypoglycemia Protocol Stop: 06/05/19 22:28 Glucose (Dex4 Glucose) 4 - 8 tabs PO UD PRN; Protocol PRN Reason: Hypoglycemia Protocol Stop: 06/05/19 22:28 Glucose (Glucose 40%) 15 - 30 gm PO UD PRN; Protocol PRN Reason: Hypoglycemia Protocol Stop: 06/05/19 22:28 Guaifenesin (Robitussin Sugar Free) 200 mg PO Q6H PRN PRN Reason: Cough Stop: 06/05/19 22:46 Last Admin: 05/07/19 00:36 Dose: 200 mg Documented by: Hydrochlorothiazide (Hctz) 25 mg PO DAILY COUNT INCLUDES THE [facility] Stop: 06/06/19 08:59 Last Admin: 05/07/19 08:36 Dose: 25 mg Documented by: Azithromycin 250 mg/ Dextrose 252.5 mls @ 125 mls/hr IV Q24H COUNT INCLUDES THE [facility] Stop: 05/14/19 09:59 Last Infusion: 05/07/19 13:25 Dose: Infused Documented by: Methylprednisolone 40 mg/ (Syringe) 0.64 mls @ 1.5 mls/min IV DAILY MANOLO Stop: 06/06/19 08:59 Last Admin: 05/07/19 08:34 Dose: 1.5 mls/min Documented by: Ceftriaxone Sodium 2,000 mg/ (Dextrose) 70 mls @ 100 mls/hr IV DAILY COUNT INCLUDES THE [facility]; Protocol Stop: 05/14/19 08:59 Last Infusion: 05/07/19 10:37 Dose: Infused Documented by: Insulin Aspart (Novolog Flexpen) 0 units SC ACHS MANOLO Stop: 06/05/19 22:59 Last Admin: 05/07/19 12:20 Dose: 2 units Documented by: Insulin Aspart (Novolog Flexpen) 0 units SC TODAY@0000,0400 MANOLO Stop: 05/08/19 04:01 Lisinopril (Zestril) 40 mg PO HS MANOLO Stop: 06/06/19 20:59 Miscellaneous (Carbohydrates For Hypoglycemia) 15 - 30 gm PO UD PRN PRN Reason: Hypoglycemia Protocol Stop: 06/05/19 22:28 Miscellaneous Information (Consult Glycemic Management Pharmacy) 1 ea N/A UD PRN; Protocol PRN Reason: Consult Stop: 06/05/19 22:59 Polyethylene Glycol (Miralax Powder Packet) 17 gm PO DAILY PRN PRN Reason: Constipation Stop: 06/05/19 22:27 Tamsulosin HCl (Flomax) 0.4 mg PO DAILY MANOLO Stop: 06/06/19 08:59 Last Admin: 05/07/19 08:36 Dose: 0.4 mg Documented by: Resident Activity Tracking Resident Involvement: Resident Care Provided Care Provided: Adult Hospital Medicine
--- NOTE | 2019-05-07 14:38 | Pharmacy Report ---
Pharmacy Glycemic Short Note 2 - Date of Service May 07, 2019 - Glycemic Short BSG Results (Last 24 hours): 05/06/19 05/06/19 05/07/19 21:20 21:32 02:10 Glucose 270 H POC Glucose 237 H 183 H 05/07/19 05/07/19 05/07/19 07:05 07:34 11:33 Glucose 193 H POC Glucose 179 H 158 H OUTPATIENT ANTIDIABETIC REGIMEN: * Metformin 500mg PO HS * A1C: pending 05/08/19 ASSESSMENT: * Patient admitted with acute respiratory failure receiving IV antibiotics and methylprednisolone 40mg daily (continued from CECIL Lorenz) * While hyperglycemic on admission, patient has downtrended nicely with NovoLog coverage. Will continue NovoLog coverage only for now. If BSG begins uptrending overnight, may consider 10-15 units of NPH tomorrow morning with IV steroid. Will add overnight novolog checks/coverage. PLAN FOR INPATIENT GLYCEMIC CONTROL: * Hold outpatient oral diabetes medications * Basal insulin * Hold * Bolus insulin * NovoLog per scale ACHS PLUS 0000,0400 * Goal Range: Low 120 mg/dL - High 160 mg/dL * Correction Factor: 25 mg/dL/unit * Nutritional / Prandial insulin per carb ratio of 1 unit per 10 grams CHO consumed PLAN FOR DISCHARGE: * pending
--- NOTE | 2019-05-07 14:42 | XCELERA ---
[id number] [id number]
[2019-05-07] MEDS: AMLODIPINE BESYLATE 5 MG TAB PO SCH (19:21)
[2019-05-07] MEDS: ATENOLOL 50 MG TABLET PO SCH (19:21)
[2019-05-07] MEDS: lisinopriL 40 MG TAB PO SCH (19:21)
[2019-05-07] MEDS ORDERED: METFORMIN HCL 500 MG TAB PO SCH (21:00)
[2019-05-07] MEDS ORDERED: Nursing to Pharmacy Communication ONE (23:34)
[2019-05-08] MEDS: INSULIN ASPART 100 UNITS/ML 3 ML PEN SC SCH ×5 (00:22→20:24)
[2019-05-08] MEDS: ALBUT/IPRATROP 3MG/0.5MG NEB 3 ML VIAL NEB SCH ×5 (03:31→19:57)
[2019-05-08 06:31] LABS: Basophils # (auto) 0.02 K/uL (0-0.2); Basophils % (auto) 0.2 %; Hematocrit (blood only) 45.5 % (42-52); Immature Granulocytes # (auto) 0.07 K/uL (0.00-0.02); Immature Granulocytes % (auto) 0.6 %; Mean Corpuscular Hemoglobin 30.2 pg (25-34); Mean Corpuscular Volume 91.7 fL (80-100); Mean Platelet Volume 9.2 fL (7.4-10.4); Monocytes # (auto) 1.15 K/uL (0.11-0.59); Monocytes % (auto) 10.1 %; Neutrophils # (auto) 8.42 K/uL (1.4-6.5); Neutrophils % (auto) 74.1 %; Platelet Count 287 K/uL (130-400); RDW Coefficient of Variation 13.1 % (11.5-14.5); Red Blood Count 4.96 M/uL (4.7-6.1); White Blood Count 11.36 K/uL (4.8-10.8)
[2019-05-08 07:05] LABS: BUN Creatinine Ratio 37.6 (10-20); Calcium 8.7 mg/dl (8.5-10.1); Creatinine Clr Calc Pharmacy 99.8 ml/min; Est GFR (African American) 106.4; Est GFR (Non-African American) 91.8; Magnesium 2.7 mg/dl (1.8-2.4); Potassium 3.9 mmol/L (3.5-5.1)
[2019-05-08 07:16] LABS: Thyroid Stimulating Hormone 1.11 uIu/ml (0.300-4.500)
[2019-05-08 07:24] LABS: Estimated Average Glucose 186 mg/dl; Hemoglobin A1C 8.1 % (4.5-5.6)
--- NOTE | 2019-05-08 09:26 | Pulmonology Progress Note ---
Date of Service May 08, 2019 Assessment & Plan (1) Acute respiratory failure with hypoxia: -- Acute Hypoxic respiratory failure Likely sec to multilobar pneumonia, atypical ESR: 48, CRP: 6.18, procalcitonin 0.05, influenza nasal swab negative, nasal MRSA negative, follow-up blood culture and sputum culture. Mycoplasma IgM and Legionella urine antigen Continue with antibiotics azithromycin and Rocephin Maintain SPO2 between 88 to 92% Chest x-ray done 05/06/2019: Shows haziness in the right lower lobe bilateral costophrenic angles are clean, bilateral cardiophrenic angles are clean. CT chest done 05/06/2019 personally reviewed: Bilateral ground-glass opacities along with tree-in-bud appreciated. There is air trapping appreciated too. No significant mediastinal lymphadenopathy. -- Questionable history of asthma Patient is a poor historian. On asking whether he has history of asthma he says maybe he does he is not sure. He does complain of wheezing around spring and fall season. The He is on albuterol at home but not taking any other inhalers other than that. Patient is actively wheezing and on steroids right now. Continue with bronchodilators -- Questionable vegetation on TTE Cardiology on board Follow blood culture Plan: Continue with antibiotics for total of 5-7 days. Continue with nebulized bronchodilators along with steroid. Patient still liters nasal cannula with saturation of 90 % . If there is no improvement oxygenation in the next couple of days patient will likely end up on home O2. Please note the above document was generated using voice recognition software. It may contain grammatical, syntax or spelling errors. (2) CAP (community acquired pneumonia): Subjective Patient seen and examined at bedside. No acute distress, not with events overnight. States that he is feeling a little bit better. Still coughing but unable to bring up any phlegm. Denies any chest pain, no headache, no nausea, no vomiting. No abdominal pain. Good appetite. Review of Systems Review of Systems: All systems reviewed & are unremarkable except as noted in HPI & below Physical Exam Physical Exam: Constitutional: No acute distress HEENT: EOMI, PERRLA, moist mucous membranes Respiratory system: Decreased air entry bilaterally, positive expiratory wheeze, positive rhonchi, no crackles CVS: S1-S2 positive, no murmurs or gallops Abdomen: Soft, nontender, nondistended, positive bowel sounds x4 Extremities: +2 pulses bilaterally radialis/ dorsalis pedis, no cyanosis, no edema, no clubbing Neuro: Awake alert oriented x3 Psych: Normal mood and affect G/U: No [place] At the time of examination patient was saturating 91% on 3 L nasal cannula at rest. Skin: no rashes, warm and dry Lymphatic: no cervical or axillary lymphadenopathy Results & Data ([facility]) Vital Signs (Past 12 Hours) Vital Signs Temp Pulse Resp BP BP Pulse Ox 05/08/19 07:42 36.7 C 72 20 174/83 H 91 05/08/19 07:09 36.9 C 77 20 182/97 H 92 05/08/19 07:00 65 20 92 05/08/19 04:11 91 05/08/19 03:35 64 20 93 05/08/19 03:16 36.7 C 67 22 166/105 H 94 05/08/19 00:04 36.7 C 64 22 168/92 H 94 05/08/19 06:18 05/08/19 06:18 PG Care Time/CCT Total # of Minutes Spent Total Time Spent with Patient: Total time spent is greater than 50% in coordination of care (as documented) at patient's floor/unit and/or counseling patient: Coding Level of Care Code 50867 Subseq Hosp Care Lvl 3 Diagnoses Acute respiratory failure with hypoxia J96.01 CAP (community acquired pneumonia) J18.9
[2019-05-08] MEDS: TAMSULOSIN HCL 0.4 MG CAP PO SCH ×2 (09:32→11:16)
[2019-05-08] MEDS: cloNIDine HCL 0.1 MG TAB PO SCH ×3 (09:32→20:20)
[2019-05-08] MEDS: hydroCHLOROthiazide 25 MG TAB PO SCH ×2 (09:32→11:16)
[2019-05-08] MEDS: FINASTERIDE 5 MG TAB PO SCH ×2 (09:32→11:16)
[2019-05-08] MEDS: ENOXAPARIN INJ 40 MG/0.4 ML SYR SQ SCH (09:34)
[2019-05-08] MEDS: cefTRIAXone SODIUM 2,000 MG in DEXTROSE 5% 50 ML IV SCH (09:35)
[2019-05-08] MEDS: methylPREDNISolone 40 MG in SYRINGE 0 ML IV SCH (09:35)
--- NOTE | 2019-05-08 09:46 | Cardiology Consultation ---
Date of Consultation May 08, 2019 Assessment & Plan (1) Mitral valve filamentous strands: There is clearly an abnormality with a filamentous structure on the mitral valve, this could be vegetation and needs to be excluded. This would require a transesophageal echocardiogram, I discussed that with him and he is agreeable. I had made him n.p.o. and will plan on doing that around noon today. It is conceivable this could be thrombus although it does not typically appear this way, but he does have atrial fibrillation. Hopefully with the transesophageal echocardiogram we can be more sure of a diagnosis. (2) Atrial fibrillation: He has asymptomatic atrial fibrillation. At [facility] he was observed to have it on the monitor, I believe was felt to be due to his acute illness but it was not present on presentation but occurred while he was there several days later. He is also had it now, including this morning. At this point he is not terribly ill and I think we have to take this as a sign that he has longstanding paroxysmal atrial fibrillation. We can consider longer-term monitoring at discharge or just plan on chronic anticoagulation. I would not start anticoagulation until after the transesophageal echocardiogram but we probably should do it at that point. I would recommend Eliquis 5 mg twice a day. (3) Abnormal QT interval present on electrocardiography: On his presenting electrocardiogram he did have a slightly long corrected QT interval. This could be antibiotic related. I would probably not avoid QT prolonging medications at this point, but I would check an electrocardiogram if those types of medications are used to make sure that he does not have significant QT prolongation. (4) HBP (high blood pressure): His blood pressure is significantly elevated and he has a rapid heart rate on telemetry during atrial fibrillation. He does not have a low heart rate at other times. He is on atenolol 100 mg at bedtime, I would probably use either metoprolol succinate or use atenolol twice a day rather than once a day since we can also use this for rate control. Since he is already on atenolol I am going to increase it to 100 mg twice daily starting tomorrow, I am going to give him a 50 mg dose now. History of Present Illness Reason for Consultation: Possible mitral valve vegetation, atrial flutter Attending Physician: Irais Guo MD History of Present Illness This is a 69-year-old male with a history of hypertension, diabetes mellitus who presented with several days of dyspnea, fever, chills and cough to [facility] on May 04, 2019. Their evaluation showed multiple infiltrates in his bases on CT scanning and he was transferred here since they do not have a culturist on staff. He arrived here on May 06, 2019. He also has history of asthma and was treated with steroids and he was started on antibiotics. Here evaluation included an echocardiogram on May 07, 2019 where he had normal left ventricular size and function with mild concentric left ventricular hypertrophy but a filamentous structure was seen on the mitral valve leaflet and therefore vegetation could not be excluded. Of note he also had atrial flutter with a heart rate of 113 on May 05, 2019 at [facility] but I believe quickly converted to sinus rhythm although I cannot be sure of the precise duration from the records I see. He tells me that he had no symptoms during it although he recalls being told that he had it when he was at [facility]. He also reports that he has had no symptoms of palpitations here but has had atrial fibrillation on telemetry. He is currently not anticoagulated. At the time my evaluation he is feeling quite well, his respiratory status has improved. He tells me that he does not typically have exertional symptoms including exertional chest discomfort or exertional shortness of breath. He has never been told he had atrial fibrillation prior to this presentation, has never noticed a fast heart rate or an irregular heart rate even with exertion. He has had no lightheadedness or dizziness. Allergies Allergy/AdvReac Type Severity Reaction Status Date / Time No Known Allergies Allergy Unverified 05/06/19 22:29 Home Medications Home Medications Medication Instructions Recorded Confirmed Type albuterol sulfate [Ventolin HFA] INHALATION 05/06/19 History amlodipine 2.5 mg PO HS 05/06/19 05/06/19 History atenolol [Tenormin] 100 mg PO HS 05/06/19 05/06/19 History atorvastatin 20 mg PO HS 05/06/19 History clonidine HCl 0.2 mg PO BID 05/06/19 05/06/19 History finasteride [Proscar] 5 mg PO DAILY 05/06/19 05/06/19 History hydrochlorothiazide 25 mg PO DAILY 05/06/19 05/06/19 History lisinopril 40 mg PO HS 05/06/19 History metformin [Glucophage] 500 mg PO HS 05/06/19 05/06/19 History tamsulosin [Flomax] 0.4 mg PO DAILY 05/06/19 05/06/19 History Patient History Medical History (Updated 05/08/19 @ 10:46 by Quinn Lowry MD) Asthma T2DM (type 2 diabetes mellitus) Family History (Updated 05/06/19 @ 23:55 by Palomo Graff MD) Father Heart disease Myocardial infarction Mother Cancer, Onset Age: 80 pancreatic Sister Diabetes Social History Preferred Language: [place] Communication Ability: Effective 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 HEENT: Unremarkable Neck: No jugular venous distention, carotid pulses are irregular but otherwise normal and equal bilaterally without bruits. Pulmonary: Clear to auscultation bilaterally. Cardiac: Irregular rapid rhythm with no murmur, gallop or rub. Abdomen: Soft, nontender with normal bowel sounds. Extremities: No edema. Distal pulses intact. Neurologic: No focal findings. Gait is steady. Skin: No rash, ecchymoses or petechiae. Results & Data ([facility]) Vital Signs (Past 12 Hours) Vital Signs Temp Pulse Resp BP BP Pulse Ox 05/08/19 07:42 36.7 C 72 20 174/83 H 91 05/08/19 07:09 36.9 C 77 20 182/97 H 92 05/08/19 07:00 65 20 92 05/08/19 04:11 91 05/08/19 03:35 64 20 93 05/08/19 03:16 36.7 C 67 22 166/105 H 94 05/08/19 00:04 36.7 C 64 22 168/92 H 94 Laboratory Results CBC 05/08/19 Range/Units 06:18 WBC 11.36 H (4.8-10.8) K/uL RBC 4.96 (4.7-6.1) M/uL Hgb 15.0 (14.0-18.0) g/dL Hct 45.5 (42-52) % Plt Count 287 (130-400) K/uL Neut # (Auto) 8.42 H (1.4-6.5) K/uL Lymph # (Auto) 1.70 (1.2-3.4) K/uL [place] # (Auto) 1.15 H (0.11-0.59) K/uL Eos # (Auto) 0.00 (0-0.5) K/uL Baso # (Auto) 0.02 (0-0.2) K/uL Comprehensive Metabolic Panel 05/08/19 Range/Units 06:18 Sodium 137 (136-145) mmol/L Potassium 3.9 (3.5-5.1) mmol/L Chloride 101 (98-107) mmol/L Carbon Dioxide 33 H (21-32) mmol/L BUN 29 H (7-18) mg/dl Creatinine 0.76 (0.6-1.4) mg/dl Glucose 154 H (70-99) mg/dl Calcium 8.7 (8.5-10.1) mg/dl Intake and Output 05/07/19 05/08/19 05/08/19 22:59 06:59 14:59 Intake Total 550 / 2642.5 70 / 70 Output Total 626 / 1427 400 / 1427 Balance -76 / 1215.5 -400 / 1215.5 70 / 70 Intake: IV 70 / 70 Rocephin 2,000 mg In D5w 50 ml 70 / 70 @ 100 mls/hr IV DAILY [facility]O Rx#: [id number] Oral 550 / 900 Output: Urine 625 / 1425 400 / 1425 # Bowel Movements 1 / 2 Other: Other Intake Source NPO # Unmeasured Voids 1 1 Weight 95.3 kg Diagnostic Findings Telemetry: Sinus rhythm with intermittent episodes of atrial fibrillation. Yesterday evening he had about 2 hours of atrial fibrillation with a heart rate around 120 bpm on average. This morning at the time of my evaluation he was in atrial fibrillation which was short-lived. Even during atrial fibrillation when I specifically asked him about symptoms he had no sensation of it. Electrocardiogram: His electrocardiogram here on arrival on May 06, 2019 at 11 PM showed sinus rhythm with a nonspecific ST-T abnormality and a slightly prolonged QT interval. A repeat electrocardiogram done on May 07, 2019 at 10 AM showed sinus rhythm and was normal. PG Care Time/CCT Total # of Minutes Spent Total Time Spent with Patient: Total time spent is greater than 50% in coordination of care (as documented) at patient's floor/unit and/or counseling patient: Coding Level of Care Code 80433 Initial Inpt Care Lvl 3 Diagnoses Mitral valve filamentous strands I34.8 Atrial fibrillation I48.91 Abnormal QT interval present on electrocardiography R94.31 HBP (high blood pressure) I10
[2019-05-08] MEDS: AZITHROMYCIN 500 MG in DEXTROSE 5% 250 ML IV SCH (10:31)
[2019-05-08] MEDS ORDERED: ATENOLOL 50 MG TABLET PO STA (10:54)
[2019-05-08] MEDS ORDERED: INSULIN ASPART 100 UNITS/ML 3 ML PEN SC SCH ×2 (12:00)
--- NOTE | 2019-05-08 12:36 | Hospitalist Progress Note ---
Date of Service May 08, 2019 Assessment & Plan (1) Acute respiratory failure with hypoxia: Patrice Pablo is a 69-year-old male with a past medical history of asthma, hypertension, and type 2 diabetes mellitus who presented to [facility] with several days of dyspnea, fever, chills, and cough. Acute hypoxic respiratory failure: - likely 2/2 CAP - was treated with empiric azithromycin expanded to Rocephin/azithromycin shortly before transfer - continue Rocephin/azithromycin - continue Methylprednisolone 40 mg daily - Pro-Javi 0.05, ESR 48, CRP 6.8; Nasal MRSA negative - Blood cx NG@24hrs - Legionella antigen pending, mycoplasma pending - Flutter valve QID - Pulmonology consulted: appreciate recs A flutter vs A fib: - concern for atrial flutter on telemetry with a rate of 113 at [facility] - EKG did not demonstrate any changes to electrical activity, - tomorrow will start atenolol 100 mg BID - TTE demonstrated 0.5cm focal echodensity attached to tip of mitral valve, with 1cm long filamentous structure with independent motion; ?if bacterial vegetation, Blood cx pending - HESHAM demonstrated 0.38cm calcification nodule involving anterior leaflet of mitral valve; no vegetation; no left atrial thrombus. - Cardiology consulted: likely asymptomatic atrial fibrillation, consider Eliquis 5mg BID or long-term monitoring Hypovolemia: - Creatinine normal, BUN/creatinine ratio 38.9 Type 2 diabetes mellitus: - On metformin monotherapy, hold home med regimen - expect some continued fluctuation given on steroids - Glucose checks AC/at bedtime Hypertension: - Continue home lisinopril 40 mg p.o. - Tomorrow will start atenolol 100 mg BID - Continue home amlodipine 2.5 mg p.o. - Continue home clonidine 0.2 mg p.o. twice daily Diet: Diabetic, heart healthy DVT prophylaxis: Lovenox Code status: Full Admission and Anticipated Discharge Date Admission Date: May 06, 2019 Supervising Physician Co-Signing Physician Notes Resident Physician Supervision Note: I independently interviewed and examined the patient and verified the [place] history and physical, reviewed labs and image studies, discussed the case with the resident Dr. Green and agree with the findings and care plan. Subjective Patient does not continue to feel overtly winded while sitting in bed. Does still have some shortness of breath when getting up and walking around within the room. Over night was temporarily off oxygen support and felt good until he got up and walked around and then subsequently needed a breathing treatment and return to oxygen. Still requiring oxygen support in the form of 3L nasal cannula, however patient at this point time continues to feel significantly better than he had prior to transfer. Review of Systems Constitutional: no fever, no chills and no sweats Eyes: no diplopia, no discharge and no photophobia Ear, Nose, Mouth, Throat: no tinnitus, no nasal congestion, no nasal discharge and no post nasal drip Respiratory: no cough, no pain on inspiration and no sputum production Cardiovascular: no chest pain, no palpitations and no edema Gastrointestinal: no abdominal pain, no nausea, no vomiting and no change in stools Physical Exam Constitutional: WD/WN, vitals as above Eyes: PERRL, conjunctivae normal, anicteric sclerae ENMT: external ear and nose normal, oropharynx normal Respiratory: normal respiratory effort and able to speak in complete sentences; not tachypneic Auscultation: + wheezes (whole ba, end expiratory); no crackles and no rales Cardiovascular: Rate/Rhythm: regular rate and regular rhythm Heart Sounds: no gallop, no murmur and no cardiac rub Vessels: normal peripheral pulses Gastrointestinal (Abdomen): normal bowel sounds, soft, nontender, no hepatosplenomegaly Lymphatic: no cervical or axillary lymphadenopathy Results & Data ([facility]) Vital Signs (Past 12 Hours) Vital Signs Temp Pulse Resp BP BP Pulse Ox 05/08/19 11:12 87 28 H 89 L 05/08/19 10:54 36.6 C 83 28 H 178/102 H 89 L 05/08/19 07:42 36.7 C 72 20 174/83 H 91 05/08/19 07:09 36.9 C 77 20 182/97 H 92 05/08/19 07:00 65 20 92 05/08/19 04:11 91 05/08/19 03:35 64 20 93 05/08/19 03:16 36.7 C 67 22 166/105 H 94 Laboratory Results 05/08/19 05/08/19 05/08/19 Range/Units 15:47 11:24 07:39 WBC (4.8-10.8) K/uL RBC (4.7-6.1) M/uL Hgb (14.0-18.0) g/dL Hct (42-52) % MCV (80-100) fL MCH (25-34) pg MCHC (32-36) g/dL RDW Std Deviation (36.4-46.3) fL RDW Coeff of Rosalino (11.5-14.5) % Plt Count (130-400) K/uL MPV (7.4-10.4) fL Immature Gran % (Auto) % Neut % (Auto) % Lymph % (Auto) % [place] % (Auto) % Eos % (Auto) % Baso % (Auto) % Immature Gran # (Auto) (0.00-0.02) K/uL Neut # (Auto) (1.4-6.5) K/uL Lymph # (Auto) (1.2-3.4) K/uL [place] # (Auto) (0.11-0.59) K/uL Eos # (Auto) (0-0.5) K/uL Baso # (Auto) (0-0.2) K/uL Sodium (136-145) mmol/L Potassium (3.5-5.1) mmol/L Chloride (98-107) mmol/L Carbon Dioxide (21-32) mmol/L Anion Gap (3-11) BUN (7-18) mg/dl Creatinine (0.6-1.4) mg/dl Est Cr Clr Drug Dosing ml/min Est GFR ( Amer) Est GFR (Non-Af Amer) BUN/Creatinine Ratio (10-20) Glucose (70-99) mg/dl POC Glucose 218 H 207 H 154 H (70-99) mg/dl Estimat Average Glucose mg/dl Hemoglobin A1c (4.5-5.6) % Calcium (8.5-10.1) mg/dl Magnesium (1.8-2.4) mg/dl Procalcitonin (0-0.5) ng/ml TSH (0.300-4.500) uIu/ml Urine Legionella Ag 05/08/19 05/08/19 05/08/19 Range/Units 06:18 06:18 06:18 WBC 11.36 H (4.8-10.8) K/uL RBC 4.96 (4.7-6.1) M/uL Hgb 15.0 (14.0-18.0) g/dL Hct 45.5 (42-52) % MCV 91.7 (80-100) fL MCH 30.2 (25-34) pg MCHC 33.0 (32-36) g/dL RDW Std Deviation 44.0 (36.4-46.3) fL RDW Coeff of Rosalino 13.1 (11.5-14.5) % Plt Count 287 (130-400) K/uL MPV 9.2 (7.4-10.4) fL Immature Gran % (Auto) 0.6 % Neut % (Auto) 74.1 % Lymph % (Auto) 15.0 % [place] % (Auto) 10.1 % Eos % (Auto) 0.0 % Baso % (Auto) 0.2 % Immature Gran # (Auto) 0.07 H (0.00-0.02) K/uL Neut # (Auto) 8.42 H (1.4-6.5) K/uL Lymph # (Auto) 1.70 (1.2-3.4) K/uL [place] # (Auto) 1.15 H (0.11-0.59) K/uL Eos # (Auto) 0.00 (0-0.5) K/uL Baso # (Auto) 0.02 (0-0.2) K/uL Sodium 137 (136-145) mmol/L Potassium 3.9 (3.5-5.1) mmol/L Chloride 101 (98-107) mmol/L Carbon Dioxide 33 H (21-32) mmol/L Anion Gap 3.0 (3-11) BUN 29 H (7-18) mg/dl Creatinine 0.76 (0.6-1.4) mg/dl Est Cr Clr Drug Dosing 99.8 ml/min Est GFR ( Amer) 106.4 Est GFR (Non-Af Amer) 91.8 BUN/Creatinine Ratio 37.6 H (10-20) Glucose 154 H (70-99) mg/dl POC Glucose (70-99) mg/dl Estimat Average Glucose 186 mg/dl Hemoglobin A1c 8.1 H (4.5-5.6) % Calcium 8.7 (8.5-10.1) mg/dl Magnesium 2.7 H (1.8-2.4) mg/dl Procalcitonin (0-0.5) ng/ml TSH 1.110 (0.300-4.500) uIu/ml Urine Legionella Ag 05/08/19 05/08/19 05/08/19 Range/Units 06:18 03:19 00:05 WBC (4.8-10.8) K/uL RBC (4.7-6.1) M/uL Hgb (14.0-18.0) g/dL Hct (42-52) % MCV (80-100) fL MCH (25-34) pg MCHC (32-36) g/dL RDW Std Deviation (36.4-46.3) fL RDW Coeff of Rosalino (11.5-14.5) % Plt Count (130-400) K/uL MPV (7.4-10.4) fL Immature Gran % (Auto) % Neut % (Auto) % Lymph % (Auto) % [place] % (Auto) % Eos % (Auto) % Baso % (Auto) % Immature Gran # (Auto) (0.00-0.02) K/uL Neut # (Auto) (1.4-6.5) K/uL Lymph # (Auto) (1.2-3.4) K/uL [place] # (Auto) (0.11-0.59) K/uL Eos # (Auto) (0-0.5) K/uL Baso # (Auto) (0-0.2) K/uL Sodium (136-145) mmol/L Potassium (3.5-5.1) mmol/L Chloride (98-107) mmol/L Carbon Dioxide (21-32) mmol/L Anion Gap (3-11) BUN (7-18) mg/dl Creatinine (0.6-1.4) mg/dl Est Cr Clr Drug Dosing ml/min Est GFR ( Amer) Est GFR (Non-Af Amer) BUN/Creatinine Ratio (10-20) Glucose (70-99) mg/dl POC Glucose 136 H 146 H (70-99) mg/dl Estimat Average Glucose mg/dl Hemoglobin A1c (4.5-5.6) % Calcium (8.5-10.1) mg/dl Magnesium (1.8-2.4) mg/dl Procalcitonin 0.05 (0-0.5) ng/ml TSH (0.300-4.500) uIu/ml Urine Legionella Ag 05/07/19 05/07/19 05/07/19 Range/Units 20:23 19:12 00:30 WBC (4.8-10.8) K/uL RBC (4.7-6.1) M/uL Hgb (14.0-18.0) g/dL Hct (42-52) % MCV (80-100) fL MCH (25-34) pg MCHC (32-36) g/dL RDW Std Deviation (36.4-46.3) fL RDW Coeff of Rosalino (11.5-14.5) % Plt Count (130-400) K/uL MPV (7.4-10.4) fL Immature Gran % (Auto) % Neut % (Auto) % Lymph % (Auto) % [place] % (Auto) % Eos % (Auto) % Baso % (Auto) % Immature Gran # (Auto) (0.00-0.02) K/uL Neut # (Auto) (1.4-6.5) K/uL Lymph # (Auto) (1.2-3.4) K/uL [place] # (Auto) (0.11-0.59) K/uL Eos # (Auto) (0-0.5) K/uL Baso # (Auto) (0-0.2) K/uL Sodium (136-145) mmol/L Potassium (3.5-5.1) mmol/L Chloride (98-107) mmol/L Carbon Dioxide (21-32) mmol/L Anion Gap (3-11) BUN (7-18) mg/dl Creatinine (0.6-1.4) mg/dl Est Cr Clr Drug Dosing ml/min Est GFR ( Amer) Est GFR (Non-Af Amer) BUN/Creatinine Ratio (10-20) Glucose (70-99) mg/dl POC Glucose 222 H (70-99) mg/dl Estimat Average Glucose mg/dl Hemoglobin A1c (4.5-5.6) % Calcium (8.5-10.1) mg/dl Magnesium (1.8-2.4) mg/dl Procalcitonin (0-0.5) ng/ml TSH (0.300-4.500) uIu/ml Urine Legionella Ag Pending SEE NOTE Medications Administered Current Inpatient Medications Acetaminophen (Tylenol) 650 mg PO Q4H PRN PRN Reason: pain/fever Stop: 06/05/19 22:27 Albuterol (Duoneb) 3 ml NEB QIDR [facility] Stop: 06/06/19 06:59 Last Admin: 05/08/19 15:05 Dose: 3 ml Documented by: Amlodipine Besylate (Norvasc) 2.5 mg PO HS [facility] Stop: 06/06/19 20:59 Last Admin: 05/07/19 19:21 Dose: 2.5 mg Documented by: Atenolol (Tenormin) 100 mg PO BID [facility] Stop: 06/07/19 20:59 Clonidine HCl (Catapres) 0.2 mg PO BID [facility] Stop: 06/05/19 22:59 Last Admin: 05/08/19 11:16 Dose: 0.2 mg Documented by: Dextrose (Dextrose 50%) 25 - 50 ml IV UD PRN; Protocol PRN Reason: Hypoglycemia Protocol Stop: 06/05/19 22:28 Enoxaparin Sodium (Lovenox) 40 mg SQ QAM [facility] Stop: 06/06/19 08:59 Last Admin: 05/08/19 09:34 Dose: 40 mg Documented by: Finasteride (Proscar) 5 mg PO DAILY [facility] Stop: 06/06/19 08:59 Last Admin: 05/08/19 11:16 Dose: 5 mg Documented by: Glucagon (Glucagen) 1 mg SQ UD PRN; Protocol PRN Reason: Hypoglycemia Protocol Stop: 06/05/19 22:28 Glucose (Dex4 Glucose) 4 - 8 tabs PO UD PRN; Protocol PRN Reason: Hypoglycemia Protocol Stop: 06/05/19 22:28 Glucose (Glucose 40%) 15 - 30 gm PO UD PRN; Protocol PRN Reason: Hypoglycemia Protocol Stop: 06/05/19 22:28 Guaifenesin (Robitussin Sugar Free) 200 mg PO Q6H PRN PRN Reason: Cough Stop: 06/05/19 22:46 Last Admin: 05/07/19 00:36 Dose: 200 mg Documented by: Hydrochlorothiazide (Hctz) 25 mg PO DAILY [facility] Stop: 06/06/19 08:59 Last Admin: 05/08/19 11:16 Dose: 25 mg Documented by: Methylprednisolone 40 mg/ (Syringe) 0.64 mls @ 1.5 mls/min IV DAILY [facility] Stop: 06/06/19 08:59 Last Admin: 05/08/19 09:35 Dose: 1.5 mls/min Documented by: Ceftriaxone Sodium 2,000 mg/ (Dextrose) 70 mls @ 100 mls/hr IV DAILY [facility]; Protocol Stop: 05/14/19 08:59 Last Infusion: 05/08/19 10:32 Dose: Infused Documented by: Azithromycin 500 mg/ Dextrose 255 mls @ 125 mls/hr IV Q24H [facility] Stop: 05/15/19 08:59 Last Infusion: 05/08/19 12:37 Dose: Infused Documented by: Insulin Aspart (Novolog Flexpen) 0 units SC ACHS [facility]; Protocol Stop: 06/07/19 16:59 Last Admin: 05/08/19 17:32 Dose: 9 units Documented by: Lisinopril (Zestril) 40 mg PO HS [facility] Stop: 06/06/19 20:59 Last Admin: 05/07/19 19:21 Dose: 40 mg Documented by: Miscellaneous (Carbohydrates For Hypoglycemia) 15 - 30 gm PO UD PRN PRN Reason: Hypoglycemia Protocol Stop: 06/05/19 22:28 Miscellaneous Information (Consult Glycemic Management Pharmacy) 1 ea N/A UD PRN; Protocol PRN Reason: Consult Stop: 06/05/19 22:59 Polyethylene Glycol (Miralax Powder Packet) 17 gm PO DAILY PRN PRN Reason: Constipation Stop: 06/05/19 22:27 Tamsulosin HCl (Flomax) 0.4 mg PO DAILY [facility] Stop: 06/06/19 08:59 Last Admin: 05/08/19 11:16 Dose: 0.4 mg Documented by: Resident Activity Tracking Resident Involvement: Resident Care Provided Care Provided: Adult Hospital Medicine
--- NOTE | 2019-05-08 13:48 | Anesthesiology Consultation ---
Date of Service May 08, 2019 Assessment & Plan (1) Encounter for pre-operative examination: Chart Review Chart Review: Acceptable Risk for Surgery and Patient NOT seen in Pre Admission Testing Consults Requested none ASA ASA4 Proposed Anesthesia Anesthesia Type: MAC Risk / Benefits Reviewed With: PT / POA / Parent / Guardian, Accepts Plan and In formed Consent Obtained History Surgery Operation Date: 05/08/19 13:45 Proposed Procedures p Transesophageal Echo w/Anesthesia - Randolph Hand MD Height/Weight Height: 5 ft 8 in Weight: 95.3 kg Allergies Allergy/AdvReac Type Severity Reaction Status Date / Time No Known Allergies Allergy Unverified 05/06/19 22:29 Medications Home Medications Medication Instructions Recorded Confirmed Last Taken albuterol sulfate [Ventolin HFA] INHALATION 05/06/19 Unknown amlodipine 2.5 mg PO HS 05/06/19 05/06/19 Unknown atenolol [Tenormin] 100 mg PO HS 05/06/19 05/06/19 Unknown atorvastatin 20 mg PO HS 05/06/19 Unknown clonidine HCl 0.2 mg PO BID 05/06/19 05/06/19 Unknown finasteride [Proscar] 5 mg PO DAILY 05/06/19 05/06/19 Unknown hydrochlorothiazide 25 mg PO DAILY 05/06/19 05/06/19 Unknown lisinopril 40 mg PO HS 05/06/19 Unknown metformin [Glucophage] 500 mg PO HS 05/06/19 05/06/19 Unknown tamsulosin [Flomax] 0.4 mg PO DAILY 05/06/19 05/06/19 Unknown Active Medications Generic Name Dose Route Start Last Admin Trade Name Angeloq PRN Reason Stop Dose Admin Albuterol 3 ml 05/07/19 07:00 05/08/19 11:11 Duoneb NEB 06/06/19 06:59 3 ml QIDR MANOLO Administration Amlodipine Besylate 2.5 mg 05/07/19 21:00 05/07/19 19:21 Norvasc PO 06/06/19 20:59 2.5 mg HS MANOLO Administration Clonidine HCl 0.2 mg 05/06/19 23:00 05/08/19 11:16 Catapres PO 06/05/19 22:59 0.2 mg BID MANOLO Administration Enoxaparin Sodium 40 mg 05/07/19 09:00 05/08/19 09:34 Lovenox SQ 06/06/19 08:59 40 mg QAM MANOLO Administration Finasteride 5 mg 05/07/19 09:00 05/08/19 11:16 Proscar PO 06/06/19 08:59 5 mg DAILY MANOLO Administration Guaifenesin 200 mg 05/06/19 22:47 05/07/19 00:36 Robitussin Sugar Free PO 06/05/19 22:46 200 mg Q6H PRN Administration Cough Hydrochlorothiazide 25 mg 05/07/19 09:00 05/08/19 11:16 Hctz PO 06/06/19 08:59 25 mg DAILY MANOLO Administration Methylprednisolone 40 mg/ 0.64 mls @ 1.5 mls/min 05/07/19 09:00 05/08/19 09:35 Syringe IV 06/06/19 08:59 1.5 mls/min DAILY MANOLO Administration Ceftriaxone Sodium 2,000 mg/ 70 mls @ 100 mls/hr 05/07/19 09:00 05/08/19 10:32 Dextrose IV 05/14/19 08:59 Infused DAILY MANOLO Infusion Protocol Azithromycin 500 mg/ Dextrose 255 mls @ 125 mls/hr 05/08/19 09:00 05/08/19 12:37 IV 05/15/19 08:59 Infused Q24H MANOLO Infusion Insulin Aspart 0 units 05/08/19 12:00 05/08/19 11:39 Novolog Flexpen SC 06/07/19 11:59 3 units Q6 MANOLO Administration Protocol Lisinopril 40 mg 05/07/19 21:00 05/07/19 19:21 Zestril PO 06/06/19 20:59 40 mg HS MANOLO Administration Tamsulosin HCl 0.4 mg 05/07/19 09:00 05/08/19 11:16 Flomax PO 06/06/19 08:59 0.4 mg DAILY MANOLO Administration Past Medical History Medical History Asthma T2DM (type 2 diabetes mellitus) Exercise / Class Metabolic Activity II 4-5 Yardwork/Stairs/Walk up hill Past Family History Family History Father Heart disease Myocardial infarction Mother Cancer, Onset Age: 80 pancreatic Sister Diabetes Past Anesthesia History No Hx of Anesthesia Complications and No Family Hx of Anesthesia Complications History of PONV No Hx of PONV and No Hx of Motion Sickness Social History Smoking Status: Never smoker Do You Dip or Chew Tobacco: No Hx Alcohol Use: Yes Alcohol type: wine alcohol intake frequency: 0-2 drinks per day Hx Substance Use: No substance use type: does not use Physical Exam Vital Signs Last Vital Signs Temp 36.6 C 05/08/19 10:54 Pulse 87 05/08/19 11:12 Resp 28 H 05/08/19 11:12 BP 178/102 H 05/08/19 10:54 Pulse Ox 89 L 05/08/19 11:12 ENMT Mouth: no dentition abnormality Thyromental Distance: > or= 3.5 Finger Breadths Mallampati Class: II Neck normal visual inspection and + thick neck Respiratory normal respiratory effort Auscultation: lungs clear to auscultation bilaterally and + wheezes (few scattered) Cardiovascular Rate/Rhythm: regular rate and regular rhythm Psychiatric Orientation: alert Testing Laboratory Results 05/08/19 06:18 05/08/19 06:18 PT 10.6 Seconds (9.0-12.0) 05/06/19 21:32 INR 1.0 (0.9-1.1) 05/06/19 21:32 APTT 25.8 Seconds (21.0-31.0) 05/06/19 21:32 Hemoglobin A1c 8.1 % (4.5-5.6) H 05/08/19 06:18 05/07/19 Unknown Gram Stain - Final Sputum, Expectorated Sputum Culture - Preliminary Moderate normal robles present, final report to follow. 05/06/19 21:40 Aerobic Blood Culture - Preliminary Blood No growth in Aerobic bottle after 24 hours. Anaerobic Blood Culture - Preliminary No growth in Anaerobic bottle after 24 hours. 05/06/19 21:32 Aerobic Blood Culture - Preliminary Blood No growth in Aerobic bottle after 24 hours. Anaerobic Blood Culture - Preliminary No growth in Anaerobic bottle after 24 hours. 05/08/19 05/08/19 05/08/19 11:24 07:39 03:19 POC Glucose 207 H 154 H 136 H Echocardiogram Date: 05/07/19 EF: 55 LV Function: normal Valvular Disease: + pertinent finding mitral leaflet abnormality (? vegitation)
--- NOTE | 2019-05-08 14:18 | Post Operative Brief Note ---
PG Immediate Post Op with CF Date of Surgery May 08, 2019 Pre & Post Diagnosis Operation Date: 05/08/19 13:45 <No data on this case meets the specified criteria> I identified the patient and participated in the time-out.: Yes Procedure Operation Date: 05/08/19 13:45 Actual Procedures p Echo Transesophageal - Randolph Hand MD s Echo Color Flow - Randolph Hand MD s Echo Doppler Complete - Randolph Hand MD Surgeon Anil Hand MD Recovery Assistant Dr. Saenz Estimated Blood Loss 0 Findings See Below Small calcified nodule involving anterior leaflet of mitral valve. No vegetation. No left atrial thrombus. Patient tolerated procedure well. Anesthesia Type MAC Complications none Disposition Disposition: PCU
[2019-05-08] MEDS ORDERED: Nursing to Pharmacy Communication ONE (16:51)
--- NOTE | 2019-05-08 17:11 | XCELERA ---
[id number]\[id number]
[2019-05-08] MEDS: ATENOLOL 50 MG TABLET PO SCH (20:20)
[2019-05-08] MEDS: AMLODIPINE BESYLATE 5 MG TAB PO SCH (20:20)
[2019-05-08] MEDS: lisinopriL 40 MG TAB PO SCH (20:21)
[2019-05-09 06:35] LABS: Hematocrit (blood only) 46.9 % (42-52); Hemoglobin 16.3 g/dL (14.0-18.0); Mean Corpuscular Hemoglobin 31.1 pg (25-34); Mean Corpuscular Hgb Conc 34.8 g/dL (32-36); Mean Corpuscular Volume 89.5 fL (80-100); Mean Platelet Volume 8.7 fL (7.4-10.4); Platelet Count 352 K/uL (130-400); RDW Coefficient of Variation 12.7 % (11.5-14.5); RDW Standard Deviation 41.8 fL (36.4-46.3); Red Blood Count 5.24 M/uL (4.7-6.1); White Blood Count 12.03 K/uL (4.8-10.8)
--- NOTE | 2019-05-09 06:44 | Anesthesiology Progress Note ---
Date of Service May 09, 2019 Anesthesia Post Procedure Vital Signs Vital Signs: Temp Pulse Pulse Pulse Resp BP BP 05/09/19 04:10 36.7 C 71 17 05/08/19 23:34 36.6 C 85 16 130/69 05/08/19 19:59 70 18 05/08/19 18:53 36.7 C 77 20 05/08/19 17:30 78 17 05/08/19 17:15 83 12 136/91 05/08/19 17:00 80 23 184/88 H 05/08/19 16:45 77 20 155/74 H 05/08/19 16:30 83 17 148/97 H 05/08/19 16:15 78 21 137/79 05/08/19 16:00 70 18 145/84 H 05/08/19 15:45 72 18 139/79 05/08/19 15:30 68 18 164/87 H 05/08/19 15:23 36.9 C 70 19 161/85 H 05/08/19 15:11 87 18 05/08/19 14:37 36.5 C 70 18 133/85 05/08/19 14:18 74 18 05/08/19 14:11 74 18 05/08/19 11:12 87 28 H 05/08/19 10:54 36.6 C 83 28 H 178/102 H 05/08/19 07:42 36.7 C 72 20 174/83 H 05/08/19 07:09 36.9 C 77 20 05/08/19 07:00 65 20 BP Pulse Ox 05/09/19 04:10 151/87 H 92 05/08/19 23:34 93 05/08/19 19:59 90 05/08/19 18:53 164/85 H 90 05/08/19 17:30 05/08/19 17:15 88 L 05/08/19 17:00 88 L 05/08/19 16:45 88 L 05/08/19 16:30 89 L 05/08/19 16:15 88 L 05/08/19 16:00 89 L 05/08/19 15:45 90 05/08/19 15:30 90 05/08/19 15:23 90 05/08/19 15:11 91 05/08/19 14:37 90 05/08/19 14:18 138/78 90 05/08/19 14:11 102/70 90 05/08/19 11:12 89 L 05/08/19 10:54 89 L 05/08/19 07:42 91 05/08/19 07:09 182/97 H 92 05/08/19 07:00 92 Transfer of Care Handoff Completed per policy Notes Mental Status: alert / awake / arousable Patient Amnestic to Procedure: Yes Nausea / Vomiting: adequately controlled Pain: adequately controlled Airway Patency, RR, SpO2: stable & adequate BP & HR: stable & adequate Hydration State: stable & adequate Anesthetic Complications: no major complications apparent Notes: patient was evaluated at the time of pacu discharge
[2019-05-09 07:05] LABS: BUN Creatinine Ratio 27.3 (10-20); Calcium 8.9 mg/dl (8.5-10.1); Creatinine Clr Calc Pharmacy 71.1 ml/min; Est GFR (African American) 81.4; Est GFR (Non-African American) 70.3; Potassium 3.8 mmol/L (3.5-5.1)
[2019-05-09 07:17] LABS: Basophils # (auto) 0.02 K/uL (0-0.2); Basophils % (auto) 0.2 %; Immature Granulocytes # (auto) 0.11 K/uL (0.00-0.02); Immature Granulocytes % (auto) 0.9 %; Lymphocytes # (auto) 2.55 K/uL (1.2-3.4); Lymphocytes % (auto) 21.2 %; Monocytes # (auto) 1.28 K/uL (0.11-0.59); Monocytes % (auto) 10.6 %; Neutrophils # (auto) 8.07 K/uL (1.4-6.5); Neutrophils % (auto) 67.1 %
[2019-05-09] MEDS: ALBUT/IPRATROP 3MG/0.5MG NEB 3 ML VIAL NEB SCH ×4 (07:30→19:15)
[2019-05-09] MEDS ORDERED: INSULIN HUMAN NPH SC SCH (07:30)
[2019-05-09] MEDS: INSULIN ASPART 100 UNITS/ML 3 ML PEN SC SCH ×4 (08:23→20:44)
[2019-05-09] MEDS: ENOXAPARIN INJ 40 MG/0.4 ML SYR SQ SCH (08:25)
[2019-05-09] MEDS: cefTRIAXone SODIUM 2,000 MG in DEXTROSE 5% 50 ML IV SCH (08:26)
[2019-05-09] MEDS: cloNIDine HCL 0.1 MG TAB PO SCH ×2 (08:53→20:44)
[2019-05-09] MEDS: TAMSULOSIN HCL 0.4 MG CAP PO SCH (08:53)
[2019-05-09] MEDS: hydroCHLOROthiazide 25 MG TAB PO SCH (08:54)
[2019-05-09] MEDS: FINASTERIDE 5 MG TAB PO SCH (08:54)
[2019-05-09] MEDS: ATENOLOL 50 MG TABLET PO SCH ×2 (08:55→20:44)
[2019-05-09] MEDS: AZITHROMYCIN 500 MG in DEXTROSE 5% 250 ML IV SCH (09:24)
[2019-05-09] MEDS: methylPREDNISolone 40 MG in SYRINGE 0 ML IV SCH ×2 (09:24→20:43)
--- NOTE | 2019-05-09 10:52 | Cardiology Progress Note ---
Date of Service May 09, 2019 Assessment & Plan (1) Mitral valve filamentous strands: HESHAM yesterday did not show any abnormality involving the mitral valve. I would not pursue this further. (2) Atrial fibrillation: He has asymptomatic atrial fibrillation. At [facility] he was observed to have it on the monitor, I believe was felt to be due to his acute illness but it was not present on presentation but occurred while he was there several days later. He is also had it several times here with episodes up to several hours. At this point he is not terribly ill and I think we have to take this as a sign that he has longstanding paroxysmal atrial fibrillation. We can consider longer-term monitoring at discharge or just plan on chronic anticoagulation. I discussed this with him and he is agreeable to take anticoagulation. He takes aspirin every several days, I do not think he has a specific indication for it so I would stop it (he is not on it here). I would recommend Eliquis 5 mg twice a day and I have entered that order. (3) Abnormal QT interval present on electrocardiography: On his presenting electrocardiogram he did have a slightly long corrected QT interval. This could be antibiotic related. I would probably not avoid QT prolonging medications at this point, but I would check an electrocardiogram if those types of medications are used to make sure that he does not have sig nificant QT prolongation. (4) HBP (high blood pressure): His blood pressure is significantly elevated and he has a rapid heart rate on telemetry during atrial fibrillation. He does not have a low heart rate at other times. I did increase his atenolol to 100 mg twice a day yesterday but his blood pressure remains quite high today, I have not adjusted his medications but will leave that up to the primary service. Admission and Anticipated Discharge Date Admission Date: May 06, 2019 Subjective He is feeling well today, no cardiac complaints. No palpitations. Physical Exam Physical Exam: Constitutional: Alert, cooperative and in no distress. HEENT: Unremarkable Neck: No jugular venous distention, carotid pulses are irregular but otherwise normal and equal bilaterally without bruits. Pulmonary: Clear to auscultation bilaterally. Cardiac: Irregular rapid rhythm with no murmur, gallop or rub. Abdomen: Soft, nontender with normal bowel sounds. Extremities: No edema. Distal pulses intact. Neurologic: No focal findings. Gait is steady. Skin: No rash, ecchymoses or petechiae. Results & Data ([facility]) Vital Signs (Past 12 Hours) Vital Signs Temp Pulse Pulse Resp BP BP Pulse Ox 05/09/19 10:10 05/09/19 08:00 66 05/09/19 07:44 36.8 C 72 18 178/85 H 94 05/09/19 07:31 60 16 91 05/09/19 04:10 36.7 C 71 17 151/87 H 92 05/08/19 23:34 36.6 C 85 16 130/69 93 Pulse Ox Pulse Ox 05/09/19 10:10 92 89 L 05/09/19 08:00 05/09/19 07:44 05/09/19 07:31 05/09/19 04:10 05/08/19 23:34 Laboratory Results CBC 05/09/19 Range/Units 06:22 WBC 12.03 H (4.8-10.8) K/uL RBC 5.24 (4.7-6.1) M/uL Hgb 16.3 (14.0-18.0) g/dL Hct 46.9 (42-52) % Plt Count 352 (130-400) K/uL Neut # (Auto) 8.07 H (1.4-6.5) K/uL Lymph # (Auto) 2.55 (1.2-3.4) K/uL Ceiba # (Auto) 1.28 H (0.11-0.59) K/uL Eos # (Auto) 0.00 (0-0.5) K/uL Baso # (Auto) 0.02 (0-0.2) K/uL Comprehensive Metabolic Panel 05/09/19 Range/Units 06:22 Sodium 139 (136-145) mmol/L Potassium 3.8 (3.5-5.1) mmol/L Chloride 100 (98-107) mmol/L Carbon Dioxide 36 H (21-32) mmol/L BUN 29 H (7-18) mg/dl Creatinine 1.06 (0.6-1.4) mg/dl Glucose 152 H (70-99) mg/dl Calcium 8.9 (8.5-10.1) mg/dl Intake and Output 05/08/19 05/09/19 05/09/19 22:59 06:59 14:59 Intake Total 100 / 565 140 / 565 70 / 70 Output Total 400 / 1750 350 / 1750 Balance -300 / -1185 -210 / -1185 70 / 70 Intake: IV 70 / 70 Rocephin 2,000 mg In D5w 50 ml 70 / 70 @ 100 mls/hr IV DAILY [facility] Rx#: [id number] Oral 100 / 240 140 / 240 Output: Urine 400 / 1750 350 / 1750 Other: Weight 94 kg Diagnostic Findings Telemetry: Sinus rhythm with brief episodes of PAT, no atrial fibrillation since yesterday PG Care Time/CCT Total # of Minutes Spent Total Time Spent with Patient: Total time spent is greater than 50% in coordination of care (as documented) at patient's floor/unit and/or counseling patient: Coding Level of Care Code 58300 Subseq Hosp Care Lvl 2 Diagnoses Mitral valve filamentous strands I34.8 Atrial fibrillation I48.91 Abnormal QT interval present on electrocardiography R94.31 HBP (high blood pressure) I10
--- NOTE | 2019-05-09 11:28 | Pharmacy Report ---
Pharmacy Glycemic Short Note 2 - Date of Service May 09, 2019 - Glycemic Short BSG Results (Last 24 hours): 05/08/19 05/08/19 05/08/19 11:24 15:47 19:54 Glucose POC Glucose 207 H 218 H 196 H 05/09/19 05/09/19 05/09/19 06:22 07:30 11:08 Glucose 152 H POC Glucose 155 H 171 H OUTPATIENT ANTIDIABETIC REGIMEN: * Patient is *prescribed* metformin 500 mg po BID per outpatient fill history, but med rec reports he *takes* 500 mg po HS * A1C: 8.1% on 05/08/19 ASSESSMENT: * 69 yo M with T2DM on one oral agent at home with adequate outpatient control admitted with acute respiratory failure receiving IV antibiotics and methylprednisolone 40mg IV daily * BSG elevations noted thus far likely steroid-induced * Initiation of NPH today indicated as patient is no longer NPO and post-prandi al BSG elevations noted yesterday. NPH selected 2nd favorable pharmacokinetic profile relating to methylprednisolone qAM administration PLAN FOR INPATIENT GLYCEMIC CONTROL: * Hold outpatient oral diabetes medications * Initiate basal insulin: NPH SC qAM based on BSG * 10 units for BSG less than 110 mg/dL * 15 units for BSG 110-160 mg/dL * 20 units for BSG greater than 160 mg/dL * Bolus insulin * NovoLog per scale ACHS PLUS [id number] * Goal Range: Low 110 mg/dL - High 140 mg/dL * Correction Factor: 25 mg/dL/unit * Nutritional / Prandial insulin per carb ratio of 1 unit per 8 grams CHO consumed PLAN FOR DISCHARGE: * Patient is *prescribed* metformin 500 mg po BID per outpatient fill history, but med rec reports he *takes* 500 mg po HS * Encourage patient to take metformin as prescribed (500 mg po BID) *with meals* to minimize GI side effects
--- NOTE | 2019-05-09 11:36 | XRay Report ---
XR chest 1V portable CLINICAL HISTORY: f/u SHORTNESS OF BREATH COMPARISON STUDY: 05/06/2019 FINDINGS: The heart is at the upper limits of normal in size. There is no failure. There is no focal pulmonary consolidation. There are no pleural effusions.[ IMPRESSION: No active disease in the chest. ACT 112: Negative or not required by law. Electronically signed by: Ulisses Guillen M.D. 05/09/2019 11:35 AM
[2019-05-09] MEDS: APIXABAN 5 MG TABLET PO SCH ×2 (12:05→20:44)
--- NOTE | 2019-05-09 17:45 | Hospitalist Progress Note ---
Date of Service May 09, 2019 Assessment & Plan (1) Acute respiratory failure with hypoxia: Patrice Pablo is a 69-year-old male with a past medical history of asthma, hypertension, and type 2 diabetes mellitus who presented to [facility] with several days of dyspnea, fever, chills, and cough. Acute hypoxic respiratory failure secondary to pneumonia: - likely 2/2 CAP with a history of asthma; patient with a prior history of asthma. He uses his Advair intermittently, but uses albuterol up to 10 times per day during current illness; was treated with empiric azithromycin expanded to Rocephin/azithromycin shortly before transfer - still requiring 2-3L of NC throughout the day to maintain saturations >88% - Nasal MRSA negative; Blood cx NG@48hrs - Legionella antigen negative, mycoplasma pending - Flutter valve QID - Pulmonology consulted: concerned with continued increased O2 requirements, as patient was not on O2 previously - CT PE: did not demonstrate pulmonary embolism but unable to fully assess segmental and subsegmental pulmonary arteries due to respiratory motion - continue Rocephin/azithromycin - Methylprednisolone 40 mg BID Asthma: - ?if this patient truly has asthma; when questioned on history of asthma he says maybe he does he is not sure. He does complain of wheezing around spring and fall season. - continue DuoNebs 4 times daily - continue methylprednisolone 40mg BID A flutter vs A fib: - concern for atrial flutter on telemetry with a rate of 113 at [facility] - EKG did not demonstrate any changes to electrical activity, - tomorrow will start atenolol 100 mg BID - TTE demonstrated 0.5cm focal echodensity attached to tip of mitral valve, with 1cm long filamentous structure with independent motion; ?if bacterial vegetation, Blood cx pending - HESHAM demonstrated 0.38cm calcification nodule involving anterior leaflet of mitral valve; no vegetation; no left atrial thrombus. - Cardiology consulted: likely asymptomatic atrial fibrillation, Eliquis 5mg BID Hypovolemia: - Creatinine normal, BUN/creatinine ratio 38.9 Type 2 diabetes mellitus: - On metformin monotherapy, hold home med regimen - expect some continued fluctuation given on steroids - Glucose checks AC/at bedtime Hypertension: - Continue home lisinopril 40 mg p.o. - Tomorrow will start atenolol 100 mg BID - Continue home amlodipine 2.5 mg p.o. - Continue home clonidine 0.2 mg p.o. twice daily Diet: Diabetic, heart healthy DVT prophylaxis: Eliquis 5mg BID Code status: Full Admission and Anticipated Discharge Date Admission Date: May 06, 2019 Supervising Physician Co-Signing Physician Notes Resident Physician Supervision Note: I independently interviewed and examined the patient and verified the [place] history and physical, reviewed labs and image studies, discussed the case with the resident Dr. Green and agree with the findings and care plan. Subjective Patient does not continue to feel overtly winded while sitting in bed. Does still have some shortness of breath when getting up and walking around within the room. Still requiring oxygen support in the form of 3L nasal cannula; however, is able to comfortably use both flutter valve and incentive spirometer without difficulty and is doing so frequently throughout the day Review of Systems Review of Systems: All systems reviewed & are unremarkable except as noted in Subjective Physical Exam Constitutional: WD/WN, vitals as above Eyes: PERRL, conjunctivae normal, anicteric sclerae ENMT: external ear and nose normal, oropharynx normal Respiratory: normal respiratory effort and able to speak in complete sentences; not tachypneic Auscultation: + wheezes (end expiratory; improved); no crackles and no rales Cardiovascular: Rate/Rhythm: regular rate and regular rhythm Heart Sounds: no gallop, no murmur and no cardiac rub Vessels: normal peripheral pulses Gastrointestinal (Abdomen): normal bowel sounds, soft, nontender, no hepatosplenomegaly Lymphatic: no cervical or axillary lymphadenopathy Results & Data ([facility]) Vital Signs (Past 12 Hours) Vital Signs Temp Pulse Pulse Resp BP Pulse Ox Pulse Ox 05/09/19 15:44 36.5 C 71 24 133/72 91 05/09/19 15:09 78 20 93 05/09/19 11:15 36.4 C L 68 18 116/71 93 05/09/19 11:11 68 16 88 L 05/09/19 10:10 92 05/09/19 08:00 66 05/09/19 07:44 36.8 C 72 18 178/85 H 94 05/09/19 07:31 60 16 91 Pulse Ox 05/09/19 15:44 05/09/19 15:09 05/09/19 11:15 05/09/19 11:11 05/09/19 10:10 89 L 05/09/19 08:00 05/09/19 07:44 05/09/19 07:31 Laboratory Results 05/09/19 05/09/19 05/09/19 Range/Units 16:34 11:08 07:30 WBC (4.8-10.8) K/uL RBC (4.7-6.1) M/uL Hgb (14.0-18.0) g/dL Hct (42-52) % MCV (80-100) fL MCH (25-34) pg MCHC (32-36) g/dL RDW Std Deviation (36.4-46.3) fL RDW Coeff of Rosalino (11.5-14.5) % Plt Count (130-400) K/uL MPV (7.4-10.4) fL Immature Gran % (Auto) % Neut % (Auto) % Lymph % (Auto) % [place] % (Auto) % Eos % (Auto) % Baso % (Auto) % Immature Gran # (Auto) (0.00-0.02) K/uL Neut # (Auto) (1.4-6.5) K/uL Lymph # (Auto) (1.2-3.4) K/uL [place] # (Auto) (0.11-0.59) K/uL Eos # (Auto) (0-0.5) K/uL Baso # (Auto) (0-0.2) K/uL Sodium (136-145) mmol/L Potassium (3.5-5.1) mmol/L Chloride (98-107) mmol/L Carbon Dioxide (21-32) mmol/L Anion Gap (3-11) BUN (7-18) mg/dl Creatinine (0.6-1.4) mg/dl Est Cr Clr Drug Dosing ml/min Est GFR ( Amer) Est GFR (Non-Af Amer) BUN/Creatinine Ratio (10-20) Glucose (70-99) mg/dl POC Glucose 202 H 171 H 155 H (70-99) mg/dl Calcium (8.5-10.1) mg/dl Urine Legionella Ag 05/09/19 05/09/19 05/07/19 Range/Units 06:22 06:22 19:12 WBC 12.03 H (4.8-10.8) K/uL RBC 5.24 (4.7-6.1) M/uL Hgb 16.3 (14.0-18.0) g/dL Hct 46.9 (42-52) % MCV 89.5 (80-100) fL MCH 31.1 (25-34) pg MCHC 34.8 (32-36) g/dL RDW Std Deviation 41.8 (36.4-46.3) fL RDW Coeff of Rosalino 12.7 (11.5-14.5) % Plt Count 352 (130-400) K/uL MPV 8.7 (7.4-10.4) fL Immature Gran % (Auto) 0.9 % Neut % (Auto) 67.1 % Lymph % (Auto) 21.2 % [place] % (Auto) 10.6 % Eos % (Auto) 0.0 % Baso % (Auto) 0.2 % Immature Gran # (Auto) 0.11 H (0.00-0.02) K/uL Neut # (Auto) 8.07 H (1.4-6.5) K/uL Lymph # (Auto) 2.55 (1.2-3.4) K/uL [place] # (Auto) 1.28 H (0.11-0.59) K/uL Eos # (Auto) 0.00 (0-0.5) K/uL Baso # (Auto) 0.02 (0-0.2) K/uL Sodium 139 (136-145) mmol/L Potassium 3.8 (3.5-5.1) mmol/L Chloride 100 (98-107) mmol/L Carbon Dioxide 36 H (21-32) mmol/L Anion Gap 3.0 (3-11) BUN 29 H (7-18) mg/dl Creatinine 1.06 (0.6-1.4) mg/dl Est Cr Clr Drug Dosing 71.1 ml/min Est GFR ( Amer) 81.4 Est GFR (Non-Af Amer) 70.3 BUN/Creatinine Ratio 27.3 H (10-20) Glucose 152 H (70-99) mg/dl POC Glucose (70-99) mg/dl Calcium 8.9 (8.5-10.1) mg/dl Urine Legionella Ag SEE NOTE Diagnostic Findings CT ANGIOGRAPHY OF THE CHEST, PULMONARY EMBOLUS PROTOCOL CLINICAL HISTORY: Shortness of breath. Follow up infiltrates. COMPARISON STUDY: Chest CT May 06, 2019. Chest radiograph performed earlier today. TECHNIQUE: Following IV administration of 120 mL of Optiray-320, helical axial images of the chest were obtained utilizing the pulmonary embolus protocol. Maximal intensity projections and sagittal and coronal reformats were viewed on an independent 3D workstation. IV contrast was administered without complication. Automated exposure control was utilized for the study. A dose lowering technique was utilized adhering to the principles of ALARA. CT DOSE: 564.68 mGycm FINDINGS: No pulmonary emboli are identified although this exam is mildly compromised by motion artifact. The heart is mildly enlarged. There is no pericardial effusion. At least moderate coronary artery calcification is present. Central airways are patent. There is no pneumothorax or pleural effusion. Multifocal airspace opacities have moderately improved since chest CT of 05/06/2019. There is no thoracic lymphadenopathy. There is no cavitation. A 2.8 cm cystic lesion within the pancreatic tail is partially imaged on this exam. Upper abdomen is otherwise unremarkable. IMPRESSION: 1. No pulmonary emboli identified although segmental and subsegmental pulmonary arteries suboptimally assessed due to respiratory motion. 2. Moderate improvement in multifocal airspace opacities since chest CT of May 06, 2019. 2. Mild cardiomegaly. Moderate coronary artery calcification. 3. Indeterminate 2.8 cm cystic lesion within the pancreatic tail. Comparison with prior abdominal cross-sectional imaging, if available, is recommended. In the absence of prior studies, a follow-up MRI is recommended. ACT 112: Negative or not required by law. Electronically signed by: Dariusz Orlando M.D. 05/09/2019 8:36 PM Medications Administered Current Inpatient Medications Acetaminophen (Tylenol) 650 mg PO Q4H PRN PRN Reason: pain/fever Stop: 06/05/19 22:27 Acetylcysteine (Mucomyst 20%) 5 ml INH Q12H MANOLO Stop: 06/08/19 18:14 Last Admin: 05/09/19 19:16 Dose: 5 ml Documented by: Albuterol (Duoneb) 3 ml NEB QIDR MANOLO Stop: 06/06/19 06:59 Last Admin: 05/09/19 19:15 Dose: 3 ml Documented by: Amlodipine Besylate (Norvasc) 2.5 mg PO HS MANOLO Stop: 06/06/19 20:59 Last Admin: 05/08/19 20:20 Dose: 2.5 mg Documented by: Apixaban (Eliquis) 5 mg PO BID [facility] Stop: 06/08/19 10:59 Last Admin: 05/09/19 12:05 Dose: 5 mg Documented by: Atenolol (Tenormin) 100 mg PO BID [facility] Stop: 06/07/19 20:59 Last Admin: 05/09/19 08:55 Dose: 100 mg Documented by: Clonidine HCl (Catapres) 0.2 mg PO BID [facility] Stop: 06/05/19 22:59 Last Admin: 05/09/19 08:53 Dose: 0.2 mg Documented by: Dextrose (Dextrose 50%) 25 - 50 ml IV UD PRN; Protocol PRN Reason: Hypoglycemia Protocol Stop: 06/05/19 22:28 Finasteride (Proscar) 5 mg PO DAILY [facility] Stop: 06/06/19 08:59 Last Admin: 05/09/19 08:54 Dose: 5 mg Documented by: Glucagon (Glucagen) 1 mg SQ UD PRN; Protocol PRN Reason: Hypoglycemia Protocol Stop: 06/05/19 22:28 Glucose (Dex4 Glucose) 4 - 8 tabs PO UD PRN; Protocol PRN Reason: Hypoglycemia Protocol Stop: 06/05/19 22:28 Glucose (Glucose 40%) 15 - 30 gm PO UD PRN; Protocol PRN Reason: Hypoglycemia Protocol Stop: 06/05/19 22:28 Guaifenesin (Robitussin Sugar Free) 200 mg PO Q6H PRN PRN Reason: Cough Stop: 06/05/19 22:46 Last Admin: 05/07/19 00:36 Dose: 200 mg Documented by: Hydrochlorothiazide (Hctz) 25 mg PO DAILY [facility] Stop: 06/06/19 08:59 Last Admin: 05/09/19 08:54 Dose: 25 mg Documented by: Ceftriaxone Sodium 2,000 mg/ (Dextrose) 70 mls @ 100 mls/hr IV DAILY [facility]; Protocol Stop: 05/14/19 08:59 Last Infusion: 05/09/19 09:45 Dose: Infused Documented by: Azithromycin 500 mg/ Dextrose 255 mls @ 125 mls/hr IV Q24H [facility] Stop: 05/15/19 08:59 Last Infusion: 05/09/19 11:33 Dose: Infused Documented by: Methylprednisolone 40 mg/ (Syringe) 0.64 mls @ 1.5 mls/min IV BID [facility] Stop: 06/08/19 20:59 Sodium Chloride (Nss) 500 mls @ 125 mls/hr IV .Q4H [facility] Stop: 05/10/19 04:14 Last Admin: 05/09/19 18:50 Dose: 125 mls/hr Documented by: Insulin Aspart (Novolog Flexpen) 0 units SC ACHS [facility]; Protocol Stop: 06/07/19 16:59 Last Admin: 05/09/19 16:44 Dose: 8 units Documented by: Insulin Human NPH (Novolin N Nph) 0 units SC QDB [facility]OLO; Protocol Stop: 06/08/19 07:29 Last Admin: 05/09/19 08:40 Dose: 15 units Documented by: Ioversol (Optiray 320 125ml) 120 ml IV ONCE PRN PRN Reason: Interaction Checking Stop: 05/13/19 20:01 Last Admin: 05/09/19 20:03 Dose: 120 ml Documented by: Lisinopril (Zestril) 40 mg PO HS MANOLO Stop: 06/06/19 20:59 Last Admin: 05/08/19 20:21 Dose: 40 mg Documented by: Miscellaneous (Carbohydrates For Hypoglycemia) 15 - 30 gm PO UD PRN PRN Reason: Hypoglycemia Protocol Stop: 06/05/19 22:28 Miscellaneous Information (Consult Glycemic Management Pharmacy) 1 ea N/A UD PRN; Protocol PRN Reason: Consult Stop: 06/05/19 22:59 Polyethylene Glycol (Miralax Powder Packet) 17 gm PO DAILY PRN PRN Reason: Constipation Stop: 06/05/19 22:27 Tamsulosin HCl (Flomax) 0.4 mg PO DAILY [facility] Stop: 06/06/19 08:59 Last Admin: 05/09/19 08:53 Dose: 0.4 mg Documented by: Resident Activity Tracking Resident Involvement: Resident Care Provided Care Provided: Adult Hospital Medicine
[2019-05-09] MEDS ORDERED: NITROGLYCERIN 2% OINTMENT 30GM TUBE ONE (18:00)
--- NOTE | 2019-05-09 18:10 | Pulmonology Progress Note ---
Date of Service May 09, 2019 Assessment & Plan (1) Acute respiratory failure with hypoxia: -- Acute Hypoxic respiratory failure Likely sec to multilobar pneumonia, atypical ESR: 48, CRP: 6.18, procalcitonin 0.05, influenza nasal swab negative, nasal MRSA negative, follow-up blood culture and sputum culture. Mycoplasma IgM and Legionella urine antigen Continue with antibiotics azithromycin and Rocephin Maintain SPO2 between 88 to 92% Chest x-ray done 05/06/2019: Shows haziness in the right lower lobe bilateral costophrenic angles are clean, bilateral cardiophrenic angles are clean. CT chest done 05/06/2019 personally reviewed: Bilateral ground-glass opacities along with tree-in-bud appreciated. There is air trapping appreciated too. No significant mediastinal lymphadenopathy. -- Questionable history of asthma Patient is a poor historian. On asking whether he has history of asthma he says maybe he does he is not sure. He does complain of wheezing around spring and fall season. He is on albuterol at home but not taking any other inhalers other than that. Patient is actively wheezing and on steroids right now. Continue with bronchodilators -- New onset Afib patient started on Apixaban HESHAM didn't show any vegetation. Plan: Continue with antibiotics for total of 5-7 days. Continue with nebulized bronchodilators along with steroid. Add Mucomyst Repeat chest x-ray from today does not show any worsening of infiltrates. Patient still requiring 3 L of nasal cannula to keep oxygen saturation above 88% at rest. Patient was never on oxygen at home. Patient did not have significant smoking history. His degree of hypoxia does not correlate with the degree of infection that he has. We will do a CTA chest to rule out PE as a cause of his hypoxia. Please note the above document was generated using voice recognition software. It may contain grammatical, syntax or spelling errors. (2) CAP (community acquired pneumonia): Subjective Patient seen and examined at bedside. No acute distress, no adverse events overnight. Patient is still coughing he says he is not able to bring much phlegm up. Denies any chest pain, no headache, no dizziness, no nausea or vomiting. He states that he is feeling better. Saturating only 89% on 3 L nasal cannula at rest. Review of Systems Review of Systems: All systems reviewed & are unremarkable except as noted in HPI & below Physical Exam Physical Exam: Constitutional: No acute distress HEENT: EOMI, PERRLA, moist mucous membranes Respiratory system: Decreased air entry bilaterally, positive expiratory wheeze, positive rhonchi, no crackles CVS: S1-S2 positive, no murmurs or gallops Abdomen: Soft, nontender, nondistended, positive bowel sounds x4 Extremities: +2 pulses bilaterally radialis/ dorsalis pedis, no cyanosis, no edema, no clubbing Neuro: Awake alert oriented x3 Psych: Normal mood and affect G/U: No [place] At the time of examination patient was saturating 89% on 3 L nasal cannula at rest. Skin: no rashes, warm and dry Lymphatic: no cervical or axillary lymphadenopathy Results & Data ([facility]) Vital Signs (Past 12 Hours) Vital Signs Temp Pulse Pulse Resp BP Pulse Ox Pulse Ox 05/09/19 15:44 36.5 C 71 24 133/72 91 05/09/19 15:09 78 20 93 05/09/19 11:15 36.4 C L 68 18 116/71 93 05/09/19 11:11 68 16 88 L 05/09/19 10:10 92 05/09/19 08:00 66 05/09/19 07:44 36.8 C 72 18 178/85 H 94 05/09/19 07:31 60 16 91 Pulse Ox 05/09/19 15:44 05/09/19 15:09 05/09/19 11:15 05/09/19 11:11 05/09/19 10:10 89 L 05/09/19 08:00 05/09/19 07:44 05/09/19 07:31 05/09/19 06:22 05/09/19 06:22 PG Care Time/CCT Total # of Minutes Spent Total Time Spent with Patient: Total time spent is greater than 50% in coordina tion of care (as documented) at patient's floor/unit and/or counseling patient: Coding Level of Care Code 93931 Subseq Hosp Care Lvl 3 Diagnoses Acute respiratory failure with hypoxia J96.01 CAP (community acquired pneumonia) J18.9
[2019-05-09] MEDS: SODIUM CHLORIDE 0.9% 500 ML IV SCH ×2 (18:50→23:00)
[2019-05-09] MEDS: ACETYLCYSTEINE 20% INHAL SOLN 4ML ***DISPENSED BY RESP. INH SCH (19:16)
[2019-05-09] MEDS ORDERED: OPTIRAY 320 125ml IV PRN (20:02)
--- NOTE | 2019-05-09 20:37 | CT Scan Report ---
CT ANGIOGRAPHY OF THE CHEST, PULMONARY EMBOLUS PROTOCOL CLINICAL HISTORY: Shortness of breath. Follow up infiltrates. COMPARISON STUDY: Chest CT May 06, 2019. Chest radiograph performed earlier today. TECHNIQUE: Following IV administration of 120 mL of Optiray-320, helical axial images of the chest we re obtained utilizing the pulmonary embolus protocol. Maximal intensity projections and sagittal and coronal reformats were viewed on an independent 3D workstation. IV contrast was administered withou t complication. Automated exposure control was utilized for the study. A dose lowering technique wa s utilized adhering to the principles of ALARA. CT DOSE: 564.68 mGycm FINDINGS: No pulmonary emboli are identified although this exam is mildly compromised by motion jolynn fact. The heart is mildly enlarged. There is no pericardial effusion. At least moderate coronary batsheva ry calcification is present. Central airways are patent. There is no pneumothorax or pleural effusion . Multifocal airspace opacities have moderately improved since chest CT of 05/06/2019. There is no thor acic lymphadenopathy. There is no cavitation. A 2.8 cm cystic lesion within the pancreatic tail is pa rtially imaged on this exam. Upper abdomen is otherwise unremarkable. IMPRESSION: 1. No pulmonary emboli identified although segmental and subsegmental pulmonary arteries suboptimally assessed due to respiratory motion. 2. Moderate improvement in multifocal airspace opacities since chest CT of May 06, 2019. 2. Mild cardiomegaly. Moderate coronary artery calcification. 3. Indeterminate 2.8 cm cystic lesion within the pancreatic tail. Comparison with prior abdominal microbiological laboratory technician ss-sectional imaging, if available, is recommended. In the absence of prior studies, a follow-up MRI is recommended. ACT 112: Negative or not required by law. Electronically signed by: Dariusz Orlando M.D. 05/09/2019 8:36 PM
[2019-05-09] MEDS: lisinopriL 40 MG TAB PO SCH (20:43)
[2019-05-09] MEDS: AMLODIPINE BESYLATE 5 MG TAB PO SCH (20:44)
[2019-05-10 06:43] LABS: Basophils # (auto) 0.01 K/uL (0-0.2); Basophils % (auto) 0.1 %; Hematocrit (blood only) 48.8 % (42-52); Hemoglobin 16.3 g/dL (14.0-18.0); Immature Granulocytes # (auto) 0.21 K/uL (0.00-0.02); Immature Granulocytes % (auto) 1.7 %; Lymphocytes # (auto) 1.39 K/uL (1.2-3.4); Lymphocytes % (auto) 11.5 %; Mean Corpuscular Hemoglobin 30.1 pg (25-34); Mean Corpuscular Hgb Conc 33.4 g/dL (32-36); Mean Corpuscular Volume 90.2 fL (80-100); Mean Platelet Volume 9.4 fL (7.4-10.4); Monocytes # (auto) 0.61 K/uL (0.11-0.59); Neutrophils # (auto) 9.89 K/uL (1.4-6.5); Neutrophils % (auto) 81.7 %; Platelet Count 344 K/uL (130-400); RDW Coefficient of Variation 12.6 % (11.5-14.5); RDW Standard Deviation 41.8 fL (36.4-46.3); Red Blood Count 5.41 M/uL (4.7-6.1); White Blood Count 12.11 K/uL (4.8-10.8)
[2019-05-10] MEDS: ALBUT/IPRATROP 3MG/0.5MG NEB 3 ML VIAL NEB SCH ×4 (07:04→19:16)
[2019-05-10] MEDS: ACETYLCYSTEINE 20% INHAL SOLN 4ML ***DISPENSED BY RESP. INH SCH ×2 (07:05→19:16)
[2019-05-10 07:19] LABS: BUN Creatinine Ratio 30.7 (10-20); Calcium 9.1 mg/dl (8.5-10.1); Creatinine Clr Calc Pharmacy 80.1 ml/min; Est GFR (African American) 94.2; Est GFR (Non-African American) 81.2; Potassium 4.7 mmol/L (3.5-5.1)
[2019-05-10] MEDS ORDERED: Nursing to Pharmacy Communication ONE (07:30)
[2019-05-10] MEDS ORDERED: INSULIN HUMAN NPH SC ONE ×2 (07:30→16:30)
[2019-05-10] MEDS: SODIUM CHLORIDE 0.9% 500 ML IV SCH (07:40)
[2019-05-10] MEDS: INSULIN ASPART 100 UNITS/ML 3 ML PEN SC SCH ×4 (08:08→20:33)
[2019-05-10] MEDS: TAMSULOSIN HCL 0.4 MG CAP PO SCH (08:13)
[2019-05-10] MEDS: hydroCHLOROthiazide 25 MG TAB PO SCH (08:13)
[2019-05-10] MEDS: cloNIDine HCL 0.1 MG TAB PO SCH ×2 (08:13→20:29)
[2019-05-10] MEDS: FINASTERIDE 5 MG TAB PO SCH (08:13)
[2019-05-10] MEDS: APIXABAN 5 MG TABLET PO SCH ×2 (08:14→20:29)
[2019-05-10] MEDS: ATENOLOL 50 MG TABLET PO SCH ×2 (08:14→20:37)
[2019-05-10] MEDS: methylPREDNISolone 40 MG in SYRINGE 0 ML IV SCH ×2 (08:14→20:37)
[2019-05-10] MEDS: cefTRIAXone SODIUM 2,000 MG in DEXTROSE 5% 50 ML IV SCH (09:10)
[2019-05-10] MEDS: AZITHROMYCIN 500 MG in DEXTROSE 5% 250 ML IV SCH (09:11)
--- NOTE | 2019-05-10 09:29 | Pharmacy Report ---
Pharmacy Glycemic Short Note 2 - Date of Service May 10, 2019 - Glycemic Short BSG Results (Last 24 hours): 05/09/19 05/09/19 05/09/19 11:08 16:34 20:40 Glucose POC Glucose 171 H 202 H 160 H 05/10/19 05/10/19 06:28 07:02 Glucose 193 H POC Glucose 200 H OUTPATIENT ANTIDIABETIC REGIMEN: * Patient is *prescribed* metformin 500 mg po BID per outpatient fill history, but med rec reports he *takes* 500 mg po HS * A1C: 8.1% on 05/08/19 ASSESSMENT: * 69 yo M with T2DM on one oral agent at home with adequate outpatient control admitted with acute respiratory failure receiving IV antibiotics and methylprednisolone. * Dose of methylprednisolone increased yesterday from 40 mg IV daily to BID which likely contributed to the notable increase in BSG noted this AM * Will increase NPH dose * Will tighten Novolog correction factor and carb ratio PLAN FOR INPATIENT GLYCEMIC CONTROL: * Hold outpatient oral diabetes medications * Increase basal insulin: NPH 25 units SC x1 this AM. Additional dose with dinner depending on BSG: * Hold NPH for BSG less than 140 mg/dL * 5 units for BSG 140-180 mg/dL * 10 units for BSG greater than 180 mg/dL * Bolus insulin * NovoLog per scale ACHS PLUS [id number] * Goal Range: Low 110 mg/dL - High 140 mg/dL * Tighten Correction Factor: 20 mg/dL/unit * Tighten Nutritional / Prandial insulin per carb ratio of 1 unit per 7 grams CHO consumed PLAN FOR DISCHARGE: * Patient is *prescribed* metformin 500 mg po BID per outpatient fill history, but med rec reports he *takes* 500 mg po HS * Encourage patient to take metformin as prescribed (500 mg po BID) *with meals* to minimize GI side effects
--- NOTE | 2019-05-10 12:28 | Cardiology Progress Note ---
Date of Service May 10, 2019 Assessment & Plan (1) Atrial fibrillation: He has asymptomatic atrial fibrillation. At [facility] he was observed to have it on the monitor, I believe was felt to be due to his acute illness but it was not present on presentation but occurred while he was there several days later. He is also had it several times here with episodes up to several hours. At this point he is not terribly ill and I think we have to take this as a sign that he has longstanding paroxysmal atrial fibrillation. We can consider longer-term monitoring at discharge or just plan on chronic anticoagulation. I discussed this with him and he is agreeable to take anticoagulation. He takes aspirin every several days, I do not think he has a specific indication for it so I would stop it (he is not on it here). I started Eliquis 5 mg twice a day yesterday and he is doing well on it and I recommended continuing it. (2) Abnormal QT interval present on electrocardiography: On his presenting electrocardiogram he did have a slightly long corrected QT interval. This could be antibiotic related. I would probably not avoid QT prolonging medications at this point, but I would check an electrocardiogram if those types of medications are used to make sure that he does not have significant QT prolongation. (3) HBP (high blood pressure): His blood pressure has been significantly elevated and he has a rapid heart rate on telemetry during atrial fibrillation. He does not have a low heart rate at other times. I did increase his atenolol to 100 mg twice a day and I would recommend continuing this. He is also on other antihypertensives and has a good blood pressure today. Admission and Anticipated Discharge Date Admission Date: May 06, 2019 Subjective He is feeling well today, he has no specific complaints and no cardiovascular complaints. He is tolerating addition of apixaban well without bleeding. Physical Exam Physical Exam: Constitutional: Alert, cooperative and in no distress. HEENT: Unremarkable Neck: No jugular venous distention, carotid pulses are normal and equal bilaterally without bruits. Pulmonary: Clear to auscultation bilaterally. Cardiac: Regular rhythm with no murmur, gallop or rub. Abdomen: Soft, nontender with normal bowel sounds. Extremities: No edema. Distal pulses intact. Neurologic: No focal findings. Gait is steady. Skin: No rash, ecchymoses or petechiae. Results & Data ([facility]) Vital Signs (Past 12 Hours) Vital Signs Temp Pulse Pulse Pulse Resp BP Pulse Ox 05/10/19 12:13 36.5 C 69 18 118/67 89 L 05/10/19 11:08 73 18 91 05/10/19 08:00 66 05/10/19 07:09 61 16 96 05/10/19 07:02 36.5 C 62 18 175/84 H 96 05/10/19 03:53 36.4 C L 58 L 20 168/93 H 96 PG Care Time/CCT Total # of Minutes Spent Total Time Spent with Patient: Total time spent is greater than 50% in coordination of care (as documented) at patient's floor/unit and/or counseling patient: Coding Level of Care Code 73828 Subseq Hosp Care Lvl 2 Diagnoses Atrial fibrillation I48.91 Abnormal QT interval present on electrocardiography R94.31 HBP (high blood pressure) I10
--- NOTE | 2019-05-10 15:00 | Hospitalist Progress Note ---
Date of Service May 10, 2019 Assessment & Plan (1) Acute respiratory failure with hypoxia: Patrice Pablo is a 69-year-old male with a past medical history of asthma, hypertension, and type 2 diabetes mellitus who presented to [facility] with several days of dyspnea, fever, chills, and cough. Acute hypoxic respiratory failure sec to pneumonia: - likely 2/2 CAP with a history of asthma; patient with stated prior history of asthma. He uses his Advair intermittently, but uses albuterol up to 10 times per day during current illness; was treated with empiric azithromycin expanded to Rocephin/azithromycin shortly before transfer - intermittently requiring 1-2L NC in order to maintain saturations >90%; initially maintained sats well while on room air but subsequently had sats of 84% without symptoms - continue Rocephin/azithromycin; Flutter valve QID - continue Methylprednisolone 40 mg BID - Nasal MRSA negative; Blood cx NG@48hrs; Legionella antigen negative, mycoplasma pending - Pulmonology consulted: concerned with continued increased O2 requirements, as patient was not on O2 previously at home - CT PE: did not demonstrate pulmonary embolism but unable to fully assess segmental and subsegmental pulmonary arteries due to respiratory motion Asthma: - ?if this patient truly has asthma vs this is other underlying lung disease; he does complain of wheezing around spring and fall season. - continue DuoNebs 4 times daily - continue methylprednisolone 40mg BID A flutter vs A fib: - concern for atrial flutter on telemetry with a rate of 113 at [facility] - continue atenolol 100 mg BID - TTE demonstrated 0.5cm focal echodensity attached to tip of mitral valve, with 1cm long filamentous structure with independent motion - HESHAM demonstrated 0.38cm calcification nodule involving anterior leaflet of mitral valve; no vegetation; no left atrial thrombus. - Cardiology consulted: continue Eliquis 5mg BID Hypovolemia: - Creatinine normal, BUN/creatinine ratio 38.9 Type 2 diabetes mellitus: - On metformin monotherapy, hold home med regimen - expect some continued fluctuation given on steroids - Glucose checks AC/at bedtime Hypertension: - Continue home lisinopril 40 mg p.o. - Continue atenolol 100 mg BID - Continue home amlodipine 2.5 mg p.o. - Continue home clonidine 0.2 mg p.o. twice daily Diet: Diabetic, heart healthy DVT prophylaxis: Eliquis 5mg BID Code status: Full Admission and Anticipated Discharge Date Admission Date: May 06, 2019 Supervising Physician Co-Signing Physician Notes Resident Physician Supervision Note: I independently interviewed and examined the patient and verified the [place] history and physical, reviewed labs and image studies, discussed the case with the resident Dr. Green and agree with the findings and care plan. Subjective Patient continues to feel improved from how he was feeling when he was using the albuterol more frequently. Was able to be off oxygen periodically throughout the day without shortness of breath, or feeling winded. Subsequent rechecks later throughout the day he had oxygen saturations of 84-89% while off oxygen, but did not have any exhibited shortness of breath, or feeling winded, or concerns about his breathing Review of Systems Review of Systems: All systems reviewed & are unremarkable except as noted in Subjective Physical Exam Constitutional: WD/WN, vitals as above Eyes: PERRL, conjunctivae normal, anicteric sclerae ENMT: external ear and nose normal, oropharynx normal Respiratory: normal respiratory effort and able to speak in complete sentences; not tachypneic Auscultation: + rales and + wheezes (end expiratory; improved); no crackles Cardiovascular: Rate/Rhythm: regular rate and regular rhythm Heart Sounds: no gallop, no murmur and no cardiac rub Vessels: normal peripheral pulses Gastrointestinal (Abdomen): normal bowel sounds, soft, nontender, no hepatosplenomegaly Lymphatic: no cervical or axillary lymphadenopathy Results & Data ([facility]) Vital Signs (Past 12 Hours) Vital Signs Temp Pulse Pulse Pulse Resp BP Pulse Ox 05/10/19 12:13 36.5 C 69 18 118/67 89 L 05/10/19 11:08 73 18 91 05/10/19 08:00 66 05/10/19 07:09 61 16 96 05/10/19 07:02 36.5 C 62 18 175/84 H 96 05/10/19 03:53 36.4 C L 58 L 20 168/93 H 96 Laboratory Results 05/10/19 05/10/19 05/10/19 Range/Units 11:45 07:02 06:28 WBC (4.8-10.8) K/uL RBC (4.7-6.1) M/uL Hgb (14.0-18.0) g/dL Hct (42-52) % MCV (80-100) fL MCH (25-34) pg MCHC (32-36) g/dL RDW Std Deviation (36.4-46.3) fL RDW Coeff of Rosalino (11.5-14.5) % Plt Count (130-400) K/uL MPV (7.4-10.4) fL Immature Gran % (Auto) % Neut % (Auto) % Lymph % (Auto) % Harmon % (Auto) % Eos % (Auto) % Baso % (Auto) % Immature Gran # (Auto) (0.00-0.02) K/uL Neut # (Auto) (1.4-6.5) K/uL Lymph # (Auto) (1.2-3.4) K/uL Harmon # (Auto) (0.11-0.59) K/uL Eos # (Auto) (0-0.5) K/uL Baso # (Auto) (0-0.2) K/uL Sodium (136-145) mmol/L Potassium (3.5-5.1) mmol/L Chloride (98-107) mmol/L Carbon Dioxide (21-32) mmol/L Anion Gap (3-11) BUN (7-18) mg/dl Creatinine (0.6-1.4) mg/dl Est Cr Clr Drug Dosing ml/min Est GFR ( Amer) Est GFR (Non-Af Amer) BUN/Creatinine Ratio (10-20) Glucose (70-99) mg/dl POC Glucose 216 H 200 H (70-99) mg/dl Calcium (8.5-10.1) mg/dl Procalcitonin < 0.05 (0-0.5) ng/ml Mycoplasma pneumon IgM (<770) U/mL 05/10/19 05/10/19 05/09/19 Range/Units 06:28 06:28 20:40 WBC 12.11 H (4.8-10.8) K/uL RBC 5.41 (4.7-6.1) M/uL Hgb 16.3 (14.0-18.0) g/dL Hct 48.8 (42-52) % MCV 90.2 (80-100) fL MCH 30.1 (25-34) pg MCHC 33.4 (32-36) g/dL RDW Std Deviation 41.8 (36.4-46.3) fL RDW Coeff of Rosalino 12.6 (11.5-14.5) % Plt Count 344 (130-400) K/uL MPV 9.4 (7.4-10.4) fL Immature Gran % (Auto) 1.7 % Neut % (Auto) 81.7 % Lymph % (Auto) 11.5 % Harmon % (Auto) 5.0 % Eos % (Auto) 0.0 % Baso % (Auto) 0.1 % Immature Gran # (Auto) 0.21 H (0.00-0.02) K/uL Neut # (Auto) 9.89 H (1.4-6.5) K/uL Lymph # (Auto) 1.39 (1.2-3.4) K/uL Harmon # (Auto) 0.61 H (0.11-0.59) K/uL Eos # (Auto) 0.00 (0-0.5) K/uL Baso # (Auto) 0.01 (0-0.2) K/uL Sodium 137 (136-145) mmol/L Potassium 4.7 D (3.5-5.1) mmol/L Chloride 100 (98-107) mmol/L Carbon Dioxide 33 H (21-32) mmol/L Anion Gap 4.0 (3-11) BUN 29 H (7-18) mg/dl Creatinine 0.94 (0.6-1.4) mg/dl Est Cr Clr Drug Dosing 80.1 ml/min Est GFR ( Amer) 94.2 Est GFR (Non-Af Amer) 81.2 BUN/Creatinine Ratio 30.7 H (10-20) Glucose 193 H (70-99) mg/dl POC Glucose 160 H (70-99) mg/dl Calcium 9.1 (8.5-10.1) mg/dl Procalcitonin (0-0.5) ng/ml Mycoplasma pneumon IgM (<770) U/mL 05/09/19 05/07/19 Range/Units 16:34 18:09 WBC (4.8-10.8) K/uL RBC (4.7-6.1) M/uL Hgb (14.0-18.0) g/dL Hct (42-52) % MCV (80-100) fL MCH (25-34) pg MCHC (32-36) g/dL RDW Std Deviation (36.4-46.3) fL RDW Coeff of Rosalino (11.5-14.5) % Plt Count (130-400) K/uL MPV (7.4-10.4) fL Immature Gran % (Auto) % Neut % (Auto) % Lymph % (Auto) % Harmon % (Auto) % Eos % (Auto) % Baso % (Auto) % Immature Gran # (Auto) (0.00-0.02) K/uL Neut # (Auto) (1.4-6.5) K/uL Lymph # (Auto) (1.2-3.4) K/uL Harmon # (Auto) (0.11-0.59) K/uL Eos # (Auto) (0-0.5) K/uL Baso # (Auto) (0-0.2) K/uL Sodium (136-145) mmol/L Potassium (3.5-5.1) mmol/L Chloride (98-107) mmol/L Carbon Dioxide (21-32) mmol/L Anion Gap (3-11) BUN (7-18) mg/dl Creatinine (0.6-1.4) mg/dl Est Cr Clr Drug Dosing ml/min Est GFR ( Amer) Est GFR (Non-Af Amer) BUN/Creatinine Ratio (10-20) Glucose (70-99) mg/dl POC Glucose 202 H (70-99) mg/dl Calcium (8.5-10.1) mg/dl Procalcitonin (0-0.5) ng/ml Mycoplasma pneumon IgM 21 (<770) U/mL Medications Administered Current Inpatient Medications Acetaminophen (Tylenol) 650 mg PO Q4H PRN PRN Reason: pain/fever Stop: 06/05/19 22:27 Acetylcysteine (Mucomyst 20%) 5 ml INH Q12H MANOLO Stop: 06/08/19 18:14 Last Admin: 05/10/19 07:05 Dose: 5 ml Documented by: Albuterol (Duoneb) 3 ml NEB QIDR MANOLO Stop: 06/06/19 06:59 Last Admin: 05/10/19 11:07 Dose: 3 ml Documented by: Amlodipine Besylate (Norvasc) 2.5 mg PO HS MANOLO Stop: 06/06/19 20:59 Last Admin: 05/09/19 20:44 Dose: 2.5 mg Documented by: Apixaban (Eliquis) 5 mg PO BID MANOLO Stop: 06/08/19 10:59 Last Admin: 05/10/19 08:14 Dose: 5 mg Documented by: Atenolol (Tenormin) 100 mg PO BID MANOLO Stop: 06/07/19 20:59 Last Admin: 05/10/19 08:14 Dose: 100 mg Documented by: Clonidine HCl (Catapres) 0.2 mg PO BID MANOLO Stop: 06/05/19 22:59 Last Admin: 05/10/19 08:13 Dose: 0.2 mg Documented by: Dextrose (Dextrose 50%) 25 - 50 ml IV UD PRN; Protocol PRN Reason: Hypoglycemia Protocol Stop: 06/05/19 22:28 Finasteride (Proscar) 5 mg PO DAILY MANOLO Stop: 06/06/19 08:59 Last Admin: 05/10/19 08:13 Dose: 5 mg Documented by: Glucagon (Glucagen) 1 mg SQ UD PRN; Protocol PRN Reason: Hypoglycemia Protocol Stop: 06/05/19 22:28 Glucose (Dex4 Glucose) 4 - 8 tabs PO UD PRN; Protocol PRN Reason: Hypoglycemia Protocol Stop: 06/05/19 22:28 Glucose (Glucose 40%) 15 - 30 gm PO UD PRN; Protocol PRN Reason: Hypoglycemia Protocol Stop: 06/05/19 22:28 Guaifenesin (Robitussin Sugar Free) 200 mg PO Q6H PRN PRN Reason: Cough Stop: 06/05/19 22:46 Last Admin: 05/07/19 00:36 Dose: 200 mg Documented by: Hydrochlorothiazide (Hctz) 25 mg PO DAILY MANOLO Stop: 06/06/19 08:59 Last Admin: 05/10/19 08:13 Dose: 25 mg Documented by: Ceftriaxone Sodium 2,000 mg/ (Dextrose) 70 mls @ 100 mls/hr IV DAILY MANOLO; Protocol Stop: 05/14/19 08:59 Last Infusion: 05/10/19 09:57 Dose: Infused Documented by: Azithromycin 500 mg/ Dextrose 255 mls @ 125 mls/hr IV Q24H MANOLO Stop: 05/15/19 08:59 Last Infusion: 05/10/19 11:15 Dose: Infused Documented by: Methylprednisolone 40 mg/ (Syringe) 0.64 mls @ 1.5 mls/min IV BID MANOLO Stop: 06/08/19 20:59 Last Admin: 05/10/19 08:14 Dose: 1.5 mls/min Documented by: Insulin Aspart (Novolog Flexpen) 0 units SC ACHS MANOLO; Protocol Stop: 06/07/19 16:59 Last Admin: 05/10/19 12:00 Dose: 10 units Documented by: Insulin Aspart (Novolog Flexpen) 0 units SC TODAY@0200 ONE; Protocol Stop: 05/11/19 02:01 Insulin Human NPH (Novolin N Nph) 0 units SC QDD ONE; Protocol Stop: 05/10/19 16:31 Ioversol (Optiray 320 125ml) 120 ml IV ONCE PRN PRN Reason: Interaction Checking Stop: 05/13/19 20:01 Last Admin: 05/09/19 20:03 Dose: 120 ml Documented by: Lisinopril (Zestril) 40 mg PO HS MANOLO Stop: 06/06/19 20:59 Last Admin: 05/09/19 20:43 Dose: 40 mg Documented by: Miscellaneous (Carbohydrates For Hypoglycemia) 15 - 30 gm PO UD PRN PRN Reason: Hypoglycemia Protocol Stop: 06/05/19 22:28 Miscellaneous Information (Consult Glycemic Management Pharmacy) 1 ea N/A UD PRN; Protocol PRN Reason: Consult Stop: 06/05/19 22:59 Polyethylene Glycol (Miralax Powder Packet) 17 gm PO DAILY PRN PRN Reason: Constipation Stop: 06/05/19 22:27 Tamsulosin HCl (Flomax) 0.4 mg PO DAILY MANOLO Stop: 06/06/19 08:59 Last Admin: 05/10/19 08:13 Dose: 0.4 mg Documented by: Resident Activity Tracking Resident Involvement: Resident Care Provided Care Provided: Adult Hospital Medicine
--- NOTE | 2019-05-10 16:29 | Pulmonology Progress Note ---
Date of Service May 10, 2019 Assessment & Plan (1) Acute respiratory failure with hypoxia: -- Acute Hypoxic respiratory failure Likely sec to multilobar pneumonia, atypical ESR: 48, CRP: 6.18, procalcitonin 0.05, influenza nasal swab negative, nasal MRSA negative, follow-up blood culture and sputum culture. Legionella urine antigen: -ve. Mycoplasma: -ve Continue with antibiotics azithromycin and Rocephin Maintain SPO2 between 88 to 92% Chest x-ray done 05/06/2019: Shows haziness in the right lower lobe bilateral costophrenic angles are clean, bilateral cardiophrenic angles are clean. CT chest done 05/06/2019 personally reviewed: Bilateral ground-glass opacities along with tree-in-bud appreciated. There is air trapping appreciated too. No significant mediastinal lymphadenopathy. -- History of asthma He is on albuterol at home but not taking any other inhalers other than that. Continue with bronchodilators Would recommend discharging the patient on lama/ICS on a daily basis. -- New onset Afib Patient started on Apixaban HESHAM didn't show any vegetation. Plan: Continue with antibiotics for total of 5-7 days. Continue with nebulized bronchodilators along with steroid. Would recommend making patient walk on room air and see if if there is any desaturations less than 88%. CTA 05/09/2019 personally reviewed: Infiltrates has decreased. There is no PE. Please note the above document was generated using voice recognition software. It may contain grammatical, syntax or spelling errors. (2) CAP (community acquired pneumonia): Subjective Patient seen and examined at bedside. No acute distress, no adverse events overnight. States that the cough has decreased in intensity. Shortness of breath is improved. Denies any chest pain, no headache, no nausea, no vomiting. Good appetite. Review of Systems Review of Systems: All systems reviewed & are unremarkable except as noted in HPI & below Physical Exam Physical Exam: Constitutional: No acute distress HEENT: EOMI, PERRLA, moist mucous membranes Respiratory system: Decreased air entry bilaterally, mild expiratory wheeze, positive rhonchi, no crackles CVS: S1-S2 positive, no murmurs or gallops Abdomen: Soft, nontender, nondistended, positive bowel sounds x4 Extremities: +2 pulses bilaterally radialis/ dorsalis pedis, no cyanosis, no edema, no clubbing Neuro: Awake alert oriented x3 Psych: Normal mood and affect G/U: No Almonte At the time of examination patient was saturating 92% on 2 L nasal cannula at rest. Skin: no rashes, warm and dry Lymphatic: no cervical or axillary lymphadenopathy Results & Data ([facility]) Vital Signs (Past 12 Hours) Vital Signs Temp Pulse Pulse Pulse Resp BP BP 05/10/19 15:44 36.8 C 63 20 148/75 H 05/10/19 15:41 60 16 05/10/19 15:31 65 05/10/19 12:13 36.5 C 69 18 118/67 05/10/19 11:08 73 18 05/10/19 08:00 66 05/10/19 07:09 61 16 05/10/19 07:02 36.5 C 62 18 175/84 H Pulse Ox 05/10/19 15:44 90 05/10/19 15:41 92 05/10/19 15:31 05/10/19 12:13 89 L 05/10/19 11:08 91 05/10/19 08:00 05/10/19 07:09 96 05/10/19 07:02 96 05/10/19 06:28 05/10/19 06:28 PG Care Time/CCT Total # of Minutes Spent Total Time Spent with Patient: Total time spent is greater than 50% in coordination of care (as documented) at patient's floor/unit and/or counseling patient: Coding Level of Care Code 90147 Subseq Hosp Care Lvl 3 Diagnoses Acute respiratory failure with hypoxia J96.01 CAP (community acquired pneumonia) J18.9
[2019-05-10] MEDS: AMLODIPINE BESYLATE 5 MG TAB PO SCH (20:29)
[2019-05-10] MEDS: lisinopriL 40 MG TAB PO SCH (20:37)
[2019-05-11] MEDS ORDERED: INSULIN ASPART 100 UNITS/ML 3 ML PEN SC ONE (02:00)
[2019-05-11] MEDS: ACETYLCYSTEINE 20% INHAL SOLN 4ML ***DISPENSED BY RESP. INH SCH (06:51)
[2019-05-11] MEDS: ALBUT/IPRATROP 3MG/0.5MG NEB 3 ML VIAL NEB SCH ×3 (06:51→15:55)
[2019-05-11] MEDS ORDERED: INSULIN HUMAN NPH SC ONE ×3 (07:30→16:30)
[2019-05-11 07:46] LABS: Basophils # (auto) 0.02 K/uL (0-0.2); Basophils % (auto) 0.1 %; Hematocrit (blood only) 47.6 % (42-52); Hemoglobin 16.9 g/dL (14.0-18.0); Immature Granulocytes # (auto) 0.29 K/uL (0.00-0.02); Immature Granulocytes % (auto) 1.7 %; Lymphocytes % (auto) 13.6 %; Mean Corpuscular Hemoglobin 31.1 pg (25-34); Mean Corpuscular Hgb Conc 35.5 g/dL (32-36); Mean Corpuscular Volume 87.7 fL (80-100); Mean Platelet Volume 9.1 fL (7.4-10.4); Monocytes # (auto) 1.01 K/uL (0.11-0.59); Neutrophils # (auto) 13.31 K/uL (1.4-6.5); Neutrophils % (auto) 78.6 %; Platelet Count 411 K/uL (130-400); RDW Coefficient of Variation 12.5 % (11.5-14.5); RDW Standard Deviation 40.3 fL (36.4-46.3); Red Blood Count 5.43 M/uL (4.7-6.1); White Blood Count 16.93 K/uL (4.8-10.8)
[2019-05-11] MEDS: INSULIN ASPART 100 UNITS/ML 3 ML PEN SC SCH (08:17)
[2019-05-11] MEDS: methylPREDNISolone 40 MG in SYRINGE 0 ML IV SCH (08:20)
[2019-05-11] MEDS: FINASTERIDE 5 MG TAB PO SCH (08:20)
[2019-05-11] MEDS: TAMSULOSIN HCL 0.4 MG CAP PO SCH (08:20)
[2019-05-11] MEDS: cloNIDine HCL 0.1 MG TAB PO SCH (08:20)
[2019-05-11] MEDS: hydroCHLOROthiazide 25 MG TAB PO SCH (08:21)
[2019-05-11] MEDS: ATENOLOL 50 MG TABLET PO SCH (08:21)
[2019-05-11] MEDS: APIXABAN 5 MG TABLET PO SCH (08:21)
[2019-05-11] MEDS: cefTRIAXone SODIUM 2,000 MG in DEXTROSE 5% 50 ML IV SCH (08:32)
--- NOTE | 2019-05-11 09:12 | Pulmonology Progress Note ---
Date of Service May 11, 2019 Assessment & Plan (1) Acute respiratory failure with hypoxia: -- Acute Hypoxic respiratory failure Likely sec to multilobar pneumonia, atypical ESR: 48, CRP: 6.18, procalcitonin 0.05, influenza nasal swab negative, nasal MRSA negative, follow-up blood culture and sputum culture. Legionella urine antigen: -ve. Mycoplasma: -ve Continue with antibiotics azithromycin and Rocephin Maintain SPO2 between 88 to 92% Chest x-ray done 05/06/2019: Shows haziness in the right lower lobe bilateral costophrenic angles are clean, bilateral cardiophrenic angles are clean. CT chest done 05/06/2019 personally reviewed: Bilateral ground-glass opacities along with tree-in-bud appreciated. There is air trapping appreciated too. No significant mediastinal lymphadenopathy. -- History of asthma He is on albuterol at home but not taking any other inhalers other than that. Continue with bronchodilators Would recommend discharging the patient on lama/ICS on a daily basis. Pulmonary follow-up will be beneficial for the patient. Plan: Continue with antibiotics for total of 5-7 days. Start tapering steroids. Would recommend making patient walk on room air and see if if there is any desa turations less than 88%. CTA 05/09/2019 personally reviewed: Infiltrates has decreased. There is no PE. Patient clinically doing much better. No further pulmonary recommendations. Will sign off, recall if needed. Thanks Please note the above document was generated using voice recognition software. It may contain grammatical, syntax or spelling errors. (2) CAP (community acquired pneumonia): Subjective Patient seen and examined at bedside. No acute distress, no adverse events overnight. Patient said the shortness of breath is improved significantly. Patient is able to walk around. Cough is decreased in intensity. Not bringing up any phlegm. No nausea or vomiting. Good appetite. Denies any headache. Review of Systems Review of Systems: All systems reviewed & are unremarkable except as noted in HPI & below Physical Exam Physical Exam: Constitutional: No acute distress HEENT: EOMI, PERRLA, moist mucous membranes Respiratory system: Decreased air entry bilaterally, no wheeze, no rhonchi, no crackles CVS: S1-S2 positive, no murmurs or gallops Abdomen: Soft, nontender, nondistended, positive bowel sounds x4 Extremities: +2 pulses bilaterally radialis/ dorsalis pedis, no cyanosis, no ed pati, no clubbing Neuro: Awake alert oriented x3 Psych: Normal mood and affect G/U: No Almonte At the time of examination patient was saturating 96% on 2 L nasal cannula went down to 1 L Skin: no rashes, warm and dry Lymphatic: no cervical or axillary lymphadenopathy Results & Data ([facility]) Vital Signs (Past 12 Hours) Vital Signs Temp Pulse Pulse Resp BP Pulse Ox 05/11/19 06:55 55 L 18 97 05/11/19 06:43 37.1 C 57 L 18 148/84 H 96 05/11/19 05:23 36.8 C 60 19 172/89 H 96 05/11/19 00:34 36.7 C 59 L 16 142/84 H 90 05/11/19 00:20 56 L 05/11/19 07:27 05/10/19 06:28 PG Care Time/CCT Total # of Minutes Spent Total Time Spent with Patient: Total time spent is greater than 50% in coordination of care (as documented) at patient's floor/unit and/or counseling patient: Coding Level of Care Code 27791 Subseq Hosp Care Lvl 3 Diagnoses Acute respiratory failure with hypoxia J96.01 CAP (community acquired pneumonia) J18.9
[2019-05-11] MEDS: AZITHROMYCIN 500 MG in DEXTROSE 5% 250 ML IV SCH (09:18)
[2019-05-11] MEDS ORDERED: levoFLOXacin 750 MG TAB PO ONE (10:37)
[2019-05-11] MEDS ORDERED: INSULIN ASPART 100 UNITS/ML 3 ML PEN SC SCH ×2 (11:30→16:30)
--- NOTE | 2019-05-11 13:24 | Pharmacy Report ---
Pharmacy Glycemic Short Note 2 - Date of Service May 11, 2019 - Glycemic Short BSG Results (Last 24 hours): 05/10/19 05/10/19 05/11/19 16:19 19:59 02:04 POC Glucose 126 H 166 H 154 H 05/11/19 05/11/19 07:19 11:39 POC Glucose 171 H 236 H OUTPATIENT ANTIDIABETIC REGIMEN: * Patient is *prescribed* metformin 500 mg po BID per outpatient fill history, but med rec reports he *takes* 500 mg po HS * A1C: 8.1% on 05/08/19 ASSESSMENT: * 69 yo M with T2DM on one oral agent at home with adequate outpatient control admitted with acute respiratory failure receiving IV antibiotics and methylprednisolone. * AM fasting BSG elevated - will adjust parameters for NPH to increase dose administered * Post-prandial BSG at lunch >180 mg/dL x2 days. Will tighten Novolog CHO ratio and correction factor at breakfast. PLAN FOR INPATIENT GLYCEMIC CONTROL: * Hold outpatient oral diabetes medications * Increase basal insulin: NPH SC qDB * 25 units for BSG less than 140 mg/dL * 30 units for BSG 140 mg/dL or greater * Increase basal insulin: NPH SC qDD * 5 units for BSG less than 140 mg/dL * 10 units for BSG 140 mg/dL or greater * Bolus insulin * NovoLog per scale ACHS * Goal Range: Low 110 mg/dL - High 140 mg/dL * Tighten Correction Factor: 20 mg/dL/unit (15 mg/dL/unit at breakfast) * Tighten Carb Ratio: 7 g CHO/unit (6 g CHO/unit at breakfast) PLAN FOR DISCHARGE: * Patient is *prescribed* metformin 500 mg po BID per outpatient fill history, but med rec reports he *takes* 500 mg po HS * Encourage patient to take metformin as prescribed (500 mg po BID) *with meals* to minimize GI side effects
--- NOTE | 2019-05-11 15:21 | Discharge Summary ---
Date of Service May 11, 2019 Admission HPI Per Admitting Provider Quinn Pablo is a 69-year-old male with a past medical history of asthma, hypertension, and type 2 diabetes who presents as a direct transfer from [facility] for community-acquired pneumonia with acute hypoxic respiratory failure in an asthmatic. He was transferred for further care and pulmonology consult after failure to improve over 2 days. His symptoms began approximately 5 days ago with a head cold. He developed increasing shortness of breath and a nonproductive cough. He denies fever, chills, night sweats, nausea, vomiting, diarrhea, abdominal pain. He has had intermittent wheezing. He endorses a history of asthma which seems to be worse since his cold. He takes Advair intermittently. He uses an albuterol inhaler daily, up to 10 times per day even preceding his admission. Unsure if he has ruano d PFTs in the past. On admission to [facility] he was given nebulizer treatments, but was not aware he was not supposed to use his own inhaler and was using his own inhaler multiple times between nebulizer treatments. He had a run of atrial flutter with a rate to 113. He does not have any prior history of atrial fibrillation, atrial flutter, or cardiac disease. He was noted to have an elevated BNP and [facility]. Per daughter he had a fever at [facility]. Report had a CT chest at [facility] which showed multifocal non-consolidative pneumonia in the lung bases. No MRSA swab or pro-Javi obtained. Patient was on high flow nasal cannula, on arrival is maintaining O2 saturation of 90% on 6 L. Medical history: Reviewed, updated Surgical history: Noncontributory Medications: Reviewed, updated in EMR Allergies: No known drug allergies Social: Denies current or former tobacco use. Denies alcohol use. Denies recreational drug use. Lives at home independently with his . CODE STATUS: Full code Principal Diagnosis Pneumonia Discharge Exam Constitutional WD/WN, vitals as above Eyes PERRL, conjunctivae normal, anicteric sclerae ENMT external ear and nose normal, oropharynx normal Respiratory normal respiratory effort and able to speak in complete sentences; not tachypneic Auscultation: + rales and + wheezes (end expiratory; improved); no crackles Cardiovascular Rate/Rhythm: regular rate and regular rhythm Heart Sounds: no gallop, no murmur and no cardiac rub Vessels: normal peripheral pulses Gastrointestinal (Abdomen) normal bowel sounds, soft, nontender, no hepatosplenomegaly Lymphatic no cervical or axillary lymphadenopathy Discharge Data Allergies Allergy/AdvReac Type Severity Reaction Status Date / Time No Known Allergies Allergy Unverified 05/06/19 22:29 Consultations 05/06/19 23:52 Consult Pulmonology Routine 05/07/19 15:02 Consult Cardiology Routine 05/08/19 23:20 Consult Case Management - Discharge Planning Routine Procedures Performed Operation Date: 05/08/19 13:45 Actual Procedures p Echo Transesophageal - Randolph Hand MD s Echo Color Flow - Randolph Hand MD s Echo Doppler Complete - Randolph Hand MD Ordered Studies 05/09/19 18:07 CT angio chest PE protocol Routine Hospital Course (1) Acute respiratory failure with hypoxia: Patrice Pablo is a 69-year-old male with a past medical history of asthma, hypertension, and type 2 diabetes mellitus who presented to [facility] with several days of dyspnea, fever, chills, and cough. Acute hypoxic respiratory failure secondary to pneumonia and asthma exacerbation: - likely 2/2 CAP with a history of asthma; - CT PE: did not demonstrate pulmonary embolism but unable to fully assess segmental and subsegmental pulmonary arteries due to respiratory motion - Nasal MRSA negative; Blood cx NG@48hrs; Legionella antigen negative, mycop lasma pending - was treated with empiric azithromycin expanded to Rocephin/azithromycin shortly before transfer; - continue Levaquin 750mg for three more days - patient with stated prior history of asthma. He uses his Advair intermittently, but uses albuterol up to 10 times per day during current illness; - Received IV steroids. Switched to prednisone on discharge - for 9 days; 60mg for three days, 40mg for three days, and 20mg for three days - intermittently requiring 1-2L NC in order to maintain saturations >90%; qualified for home O2 with 2-step demonstrated continued desaturations while w alking Asthma: - ?if this patient truly has asthma vs this is other underlying pulmonologic disease; he does complain of wheezing around spring and fall season. - will have follow-up with [facility] pulmonology clinic A flutter vs A fib: - concern for atrial flutter on telemetry with a rate of 113 at [facility] - continue atenolol 100 mg BID - continue Eliquis 5mg BID - will have follow-up in [facility] cardiology clinic Hypovolemia: - Creatinine normal, BUN/creatinine ratio 38.9 Type 2 diabetes mellitus: - continue home metformin regimen Hypertension: - Continue home lisinopril 40 mg p.o. - Continue atenolol 100 mg BID - Continue home amlodipine 2.5 mg p.o. - Continue home clonidine 0.2 mg p.o. twice daily Code status: Full Total Time Total Time Spent Total Time Spent (In Minutes): 30 Discharge Plan Discharge Items Patient Disposition: Home - Home Health Services Reason For Visit: AHRF, CAP WITH HX ASTHMA Discharge Diagnosis: Pneumonia Activity: Per Instructions section Non-emergency contact: Primary Care Provider, Production Painter and Plaster Pattern Caster Call non-emergency contact if: you have any medication questions, your symptoms worsen and you have a fever Follow-up/Referrals: Kit Graham [Primary Care Provider] - 05/16/19 1:00 am (ADDRESS OF APPT: [address] [place] [address]) Diet: Heart Healthy Addtl Attending Provider Instructions: You were transferred from [facility], after having continued worsening of your breathing. With continued concern for long sinuses it was determined that he needed to see a water meter installer, and absolutely in combination with the water meter installer and edge stainer machine it was determined that you likely had pneumonia and also had a new rhythm to your heart called atrial fibrillation. As a result of these 2 new diagnoses, he was started on some new medications for the control of your heart rate and rhythm. Recently restarted on steroids and a long-acting inhaler, that you will continue to take not yet being discharged from the hospital. Steroid you will take in a decreasing dose fashion, during tomorrow he will take 60 mg for 3 days, followed by 40 mg for 3 days, followed by 20 mg for 3 days, at that point the medication will stop. You will also take an additional 3 doses of the antibiotics, before this medication will have completed its cycle. In the coming month you will have a follow-up with both a water meter installer from the [facility] physician group and a edge stainer machine from the [facility] physician group; it is important you keep this appointments as they will continue to monitor your improvement. Pending Studies at Discharge: No Stand-Alone Forms: My [facility], Smoking Cessation Medications and DC Order Prescriptions: New atenolol 50 mg Tablet 100 mg PO BID 30 Days Qty: 120 RF: 0 Eliquis 5 mg Tablet 5 mg PO BID 30 Days Qty: 60 RF: 0 levofloxacin [Levaquin] 750 mg tablet 750 mg PO DAILY 3 Days Qty: 3 RF: 0 prednisone 20 mg tablet See Rx Instructions .ROUTE .COMPLEX 9 Days Qty: 18 RF: 0 fluticasone propion-salmeterol [Advair Diskus] 100-50 mcg/dose blister with device 1 puffs INH DAILY Qty: 60 RF: 0 Continued amlodipine 2.5 mg tablet 2.5 mg PO HS RF: 0 atorvastatin 20 mg tablet 20 mg PO HS RF: 0 lisinopril 40 mg tablet 40 mg PO HS RF: 0 clonidine HCl 0.2 mg tablet 0.2 mg PO BID RF: 0 tamsulosin [Flomax] 0.4 mg capsule 0.4 mg PO DAILY RF: 0 metformin [Glucophage] 500 mg tablet 500 mg PO HS RF: 0 finasteride [Proscar] 5 mg tablet 5 mg PO DAILY RF: 0 albuterol sulfate [Ventolin HFA] 90 mcg/actuation HFA aerosol inhaler INHALATION RF: 0 hydrochlorothiazide 25 mg tablet 25 mg PO DAILY RF: 0 Discontinued atenolol [Tenormin] 100 mg tablet 100 mg PO HS RF: 0 Discharge Orders: Discharge Order (Routine); Ordered 05/11/19 Ordered By: Waldo Green Admission Data Admit Date/Time: 05/06/19 21:17 Attending Provider: Irais Guo Admit Provider: Fransico Madsen Primary Care Provider: Kit Graham Other Providers: Jose Cross ; Fransico Madsen ; Quinn Lowry Other Interventions: Discharge Summary Assessment (RN) Last Done: 05/11/19 15:29 DC Date/Time DO NOT enter until pt leaves facility: 05/11/19 16:21 Supervising Physician Co-Signing Physician Notes Resident Physician Supervision Note: I independently interviewed and examined the patient and verified the [place] history and physical, reviewed labs and image studies, discussed the case with the resident Dr. Green and agree with the findings and care plan. Resident Activity Tracking Resident Involvement: Resident Care Provided Care Provided: [facility]
[2019-05-12] MEDS ORDERED: INSULIN ASPART 100 UNITS/ML 3 ML PEN SC SCH (07:30)
[2019-05-12] MEDS ORDERED: INSULIN HUMAN NPH SC ONE (09:00)
== END 2019-05-11 16:21 | disposition home health service (06) | DRG 193 ==
LOC: 2E 21:17 → SUATTDRO 21:17